=== PATIENT | male | born 1940 | race Caucasian/White ===

== ENCOUNTER 2019-12-05 06:36 | Day surgery (SDC) | payer MEDICARE, BC, SELFPAY ==
[2019-12-04 10:44] VITALS: BMI 19.0
[2019-12-05] MEDS: sodium chloride 0.9% 1,000 ML 30 ML (06:58)
[2019-12-05 07:01] VITALS: BP 173/86; PULSE 76; RESP 18; TEMP 36.6; O2SAT 92
--- NOTE | 2019-12-05 07:04 | ANES.PREANES ---
Pre-Anesthetic Assessment Pre-Anesthetic Assessment: Height/Weight: Height 1.83 m Weight 63.503 kg Temp Pulse Resp BP Pulse Ox 97.9 F 76 18 173/86 92 12/05/19 07:01 12/05/19 07:01 12/05/19 07:01 12/05/19 07:01 12/05/19 07:01 Proposed Procedure: Operation Date: 12/05/19 07:30 Proposed Procedures p EGD(Not Applicable) - Boaz Mixon MD Was Beta Yovanny taken within 24 hours: Yes (labetolol 200mg BID (last taken last night)) Last intake: Intake Last Liquid Date 12/04/19 Last Liquid Time 23:59 Last Solid Date 12/04/19 Last Solid Time 20:00 Social: Social History: Tobacco (quit 35 yrs ago) Exam: Pre-Anes Outpt Exam: alert, oriented x 3, clear to auscultation bilaterally and regular rate & rhythm Airway: Submandibular: WNL Cervical ROM: WNL MP: 2 Dentition: Chipped History/ROS: No significant history except as noted Pulmonary: Pulmonary: COPD and BRANDT (pulmonary nodules excised in early 's ) CV/HEM: CV/HEM: Afib and HTN Comments: severe aortic stenosis (Courtney does an ECHO every 6 months) : : None reported Hepatic: Hepatic: None reported GI: GI: PUD (duodenal ulcer perforation (surgery 2 months ago with Apurva)) Metabolic: Metabolic: Hyperlipidemia Musc/skel: Musc/skel: Weakness (walking assisted by cane) Neuropsych: Neuropsych: Neuropathy (bilateral feet) Anesthetic Plan: ASA status: III Anesthesia: Anesthesia Evaluation and MAC Risk of > 500 ml blood loss (7ml/kg in children): No PFSH Anesthesia PFSH: Social History (Updated 12/04/19 @ 10:50 by Jacqueline Dominique) Smoking and tobacco status: former smoker Alcohol intake: current Alcohol intake frequency: 0-2 Drinks per Day Substance/Drug Use: never Data Anesthesia Cardiac Studies: No Data to Display
--- NOTE | 2019-12-05 07:36 | PM.HPUD ---
H&P update H&P Update: DATE OF SURGERY/PROCEDURE: 12/05/19 DATE H&P PERFORMED: 12/05/19 PLANNED PROCEDURE: Operation Date: 12/05/19 07:30 Proposed Procedures p EGD(Not Applicable) - Boaz Mixon MD Full H&P Perinent History: Social History: Social History Smoking and tobacco status: former smoker Alcohol intake: current Alcohol intake frequency: 0-2 Drinks per Day Substance/Drug Use: never
[2019-12-05 07:51] VITALS: BP 122/72; PULSE 70; RESP 16; TEMP 36.5; O2SAT 92
--- NOTE | 2019-12-05 07:58 | ANE.PACU ---
 Inpatient post-anesthesia follow up: Airway intact: Yes Vital signs: Temperature 97.7 F Pulse Rate [Bilate ral Radial] 70 Respiratory Rate 16 Blood Pressure [Le ft Arm] 122/72 Pulse Oximetry 92 Oxygen Delivery Me thod Room Air Oxygen Flow Rate Fraction of Inspir ed Oxygen Hydration adequate: Yes Nausea and vomiting: No Pain level: Other Pain level: 0/10 Mental status: Baseline
[2019-12-05 08:04] VITALS: BP 134/78; PULSE 69; RESP 18; O2SAT 94
== END 2019-12-05 08:10 | disposition home or self-care (01) ==
PROVIDERS: Family Provider Family Medicine; Visit Provider Surgery
PROC: 0DJ08ZZ Inspection of Upper Intestinal Tract, Via Natural or Artificial Opening Endoscopic (ICD-10-PCS; CPT 43235; principal; 2019-12-05 07:30)
DX: Z87.11 Personal history of peptic ulcer disease (principal); Z87.891 Personal history of nicotine dependence; J44.9 Chronic obstructive pulmonary disease, unspecified; I48.91 Unspecified atrial fibrillation; I10 Essential (primary) hypertension; E78.5 Hyperlipidemia, unspecified; G62.9 Polyneuropathy, unspecified
CPT/HCPCS: 12345; 43235; 96365; J2001; J2704; J7030

== ENCOUNTER 2019-12-12 18:34 | Inpatient (IN) | payer MEDICARE, BC, SELFPAY ==
[2019-12-12] VITALS (13 sets, daily range): BP systolic 123–159; BP diastolic 75–109; PULSE 74–84; RESP 14–24; TEMP 36.4–36.7; O2SAT 70–97; BMI 19.0
--- NOTE | 2019-12-12 18:56 | XR_ITS ---
WS: [id number] CHEST XRAY TECHNIQUE: Portable chest. CLINICAL INFORMATION: cough COMPARISON: May 21, 2018 FINDINGS: Heart: Cardiomegaly. Aortic calcification. Lungs: Pulmonary vascular congestion with interstitial edema. Small bilateral pleural effusions. Biba silar atelectasis. Patchy airspace infiltrate in the left lung base. Bones: Normal visualized bony structures. XR/XR chest 1V portable [id number] IMPRESSION: 1. Cardiomegaly with mild pulmonary vascular congestion and interstitial edema consistent with CHF. Small bilateral pleural effusions. 2. Patchy airspace infiltrate in the left lower lobe consistent with pneumonia .
--- NOTE | 2019-12-12 18:56 | ECG_ITS ---
Measurements Intervals [place] Rate: 75 P: -19 CO: 166 QRS: -40 QRSD: 110 T: 67 QT: 396 QTc: 442 SINUS RHYTHM LEFT VENTRICULAR HYPERTROPHY AND ST-T CHANGE [VOLTAGE CRITERIA PLUS ST/T ABNORMALITY] INFERIOR MYOCARDIAL INFARCTION , OF INDETERMINATE AGE [40+ ms Q WAVE AND/OR ST/T ABNORMALITY IN II/aVF] ANTEROSEPTAL MYOCARDIAL INFARCTION , OF INDETERMINATE AGE [40+ ms Q WAVE IN V1-V4] Compared to ECG 09/21/2019 11:38:52 Left ventricular hypertrophy now present ST (T wave) deviation now present Myocardial infarct finding still present Electronically Signed On 12-13-2019 15:53:50 MUSICAL THERAPIST by Kevin Valdez M.D. [id number]
--- NOTE | 2019-12-12 19:04 | ED_ITS ---
Entered by Saray Garnett, acting as scribe for HPI - SOB/Dyspnea General: Chief Complaint: Shortness of Breath/Dyspnea Stated Complaint: sob Time Seen by Provider: 12/12/19 18:55 Source: patient Mode of arrival: ambulatory Limitations: physical limitation History of Present Illness: HPI Narrative: Mr. Sellers is a 79-year-old male who comes in complaining of shortness of breath. He states for the past 3 weeks he has been getting more short of breath but much worse today. He has had no cough but does have mild orthopnea. He denies any chest pain. He does get severely dyspneic with exertion. He does complain of some heartburn intermittently and increased leg swelling. Otherwise he is aware of anything that makes his symptoms better or worse. The patient does have a history of aortic stenosis and atrial fibrillation. His local doctor is Dr. Dinh and he follows with a advertising clerk out of [place]. MD elicited complaint: shortness of breath Onset (ago): day(s) (today) Context: occurred during exertion Timing: constant and progressively worsening Severity: moderate Exacerbating factors: exertion and deep breaths Relieving factors: nothing Associated symptoms: Reports orthopnea; Deny abdominal pain, chest congestion, chest pain, diaphoresis, dizziness, extre mity pain, fever(s), hemoptysis, nausea, palpitations, polydipsia, syncope or vomiting Treatment prior to arrival: other (seen at PCP clinic sent to ED for shortness of breath.) Review of Systems General: Reports: 10 or more systems reviewed and unremarkable except in HPI and below and other (negative unless marked) Const: Denies: fever, chills, body aches, fatigue, malaise or diaphoresis Eyes: Denies: change in vision or blurry vision ENMT: Denies: throat pain, painful swallowing, hoarseness, ear pain, ear discharge, Change in hearing or nasal discharge Card: Reports: edema, swelling of feet/ankles, shortness of breath on exertion and shortness of breath when lying down; Denies: chest pain, palpitations, irregular heart rhythm, syncope or pre-syncope Resp: Reports: shortness of breath; Denies: productive cough, non-productive cough, wheezing, coughing up blood or chest congestion GI: Denies: abdominal pain, nausea, vomiting, vomiting blood, coffee grounds in vomit, diarrhea, constipation, cramping, blood in stool or black tarry stool : Denies: flank pain, difficulty urinating, painful urination, urinary frequency, urinary urgency, decreased urine ouput, urinary incontinence or blood in urine Musc: Reports: extremity swelling; Denies: neck pain, back pain, extremity pain, joint pain, joint swelling, joint warmth or joint stiffness Skin/Breast: Denies: rash, skin tenderness or yellow skin Neuro: Denies: headache, numbness in extremities, weakness in extremities, changes in sensation, lack of coordination, difficulty walking, dizziness, vertigo or confusion Endo: Denies: excessive thirst, tired all the time, cold intolerance, excessive sweating, flushing or hot flashes Sonido/Lymph: Denies: easy bruising, easy bleeding, petechiae or enlarged lymph nodes All/Imm: Denies: hives, throat swelling, tongue swelling, facial swelling or acute wheezing PFSH ED PFSH: Statuses (acute, chronic, etc) shown below reflect problem list status as previously entered and may not be historically accurate Social History (Updated 12/04/19 @ 10:50 by Jacqueline Dominique) Smoking and tobacco status: former smoker Alcohol intake: current Alcohol intake frequency: 0-2 Drinks per Day Physical Exam Const: COMMON NORMALS: no apparent distress, oriented x3, no limitations, healthy appearing and well nourished EXAM LIMITATIONS: no altered mental status GENERAL APPEARANCE: cooperative, well kempt and well developed ORIENTATION/CONSCIOUSNESS: Yes awake HENMT: COMMON NORMALS: normocephalic, head/scalp atraumatic, hearing grossly normal bilaterally, external ears normal, EAC's normal, external nose normal and moist oral mucous membranes HEAD & SCALP: normal to inspection, normocephalic and atraumatic FACE & SINUS: normal facial exam and face symmetric NOSE: external nose normal and nares normal EXTERNAL EAR: Yes external ears normal EXTERNAL AUDITORY CANAL: EAC's normal MOUTH: oral and palatal mucosa normal and tongue normal Eye: COMMON NORMALS: PERRL, EOMs intact bilaterally, conjunctivae normal and no scleral icterus GENERAL EYE: normal appearance of both eyes and normal light reflex CONJUNCTIVA: Yes conjunctivae normal SCLERA: sclerae normal CORNEA: Yes corneas normal PUPIL: Yes PERRL DIRECT OPHTHALMOSCOPY: Yes normal light reflex Neck/C-Spine: COMMON NORMALS: full ROM, no lymphadenopathy, supple, no meningeal signs and no JVD GENERAL: Yes normal visual inspection and Yes trachea midline CERVICAL SPINE: Yes cervical ROM normal Chest: COMMONS NORMALS: inspection of chest normal and palpation of chest normal Resp: COMMON NORMALS: normal respiratory effort, no retractions and no use of accessory muscles EFFORT & INSPECTION: Yes able to speak in complete sentences AUSCULTATION: rales Cardio: COMMON NORMALS: no JVD, regular rate, regular rhythm, S1 normal heart sound, S2 normal heart sound, no gallops, no clicks, no murmurs and no rub JUGULAR VENOUS DISTENTION: no JVD RATE: regular rate RHYTHM: regular rhythm HEART SOUNDS: S1 normal, S2 normal and murmur systolic Intensity: V/ GI: COMMON NORMALS: soft to palpation, non-tender, no hepatosplenomegaly and no masses INSPECTION: Yes normal to inspection PALPATION: Yes soft and Yes no hepatosplenomegaly : COMMON NORMALS: Yes no CVA tenderness BLADDER/KIDNEY EXAM: Yes no CVA tenderness Back/Pelvis: COMMON NORMALS: no CVA tenderness, thoracic and lumbar spine normal to inspection, no thoracic nor lumbar tenderness and thoraco-lumbar ROM normal Extremity: COMMON NORMALS: normal to inspection, full ROM, normal capillary refill, no joint enlargement, no clubbing, cyanosis or edema and no calf tenderness Neuro: COMMON NORMALS: oriented x3, CN's II-XII intact bilaterally, moves all extremities, no focal motor deficits and no sensory deficits noted MENINGEAL SIGNS: Yes no meningeal signs Psych: COMMON NORMALS: mental status grossly normal, thought process normal, cooperative, affect normal, speech normal and activity/motor behavior normal APPEARANCE: Yes well kempt SPEECH: Yes normal speech THOUGHT PROCESS: normal thought process Skin: COMMON NORMALS: no rashes or lesions noted, skin turgor normal, no jaundice, no petechiae and no mottling GENERAL SKIN EXAM: no rashes or lesions noted and turgor normal Course Vital Signs: Vital signs: Vital Signs Temperature 97.5 F L 12/12/19 18:44 Pulse Rate 82 12/12/19 20:49 Respiratory Rate 16 12/12/19 20:49 Blood Pressure 148/109 12/12/19 20:49 Pulse Oximetry 92 12/12/19 20:49 MDM - SOB/Dyspnea MDM Narrative: Medical decision making narrative: Arrival -Mr. Sellers is a 79-year-old male who arrives with profound hypoxia. His vital signs are stable except for a significant hypoxemia. He denies any chest pain but does complain of dyspnea on exertion. He denies cough or fever. Differential is extensive including congestive heart failure, COPD exacerbation, pneumothorax, shunt, congestive heart failure among many others. We will go ahead and proceed with work-up as giving the patient supplemental oxygen has greatly improved his hypoxemia. Admit -the patient appears as though he has congestive heart failure exacerbated by his valve. He is not in distress but he is extremely hypoxemic. He is tolerating BiPAP well and is diuresing well. I reviewed the case in full with Dr. Pretty who is agreeable to admission. The patient is improving at this time. We will be admitted to the ICU. Lab Data: Labs: Lab Results 12/12/19 12/12/19 12/12/19 Range/Units 19:20 19:20 19:20 WBC 8.0 (4.0-10.0) 10^3/ uL RBC 3.87 L (4.1-5.3) 10^6/u L Hgb 11.6 L (11.7-16.6) g/dL Hct 34.7 L (42.0-52.0) % MCV 89.7 (80-94) fL MCH 30.0 (28.0-34.0) pg MCHC 33.4 (30.0-36.0) g/dL RDW 12.8 (12.1-15.1) % Plt Count 166 (130-400) 10^3/c mm MPV 9.1 (7.4-10.4) fL Neut % (Auto) 76.8 % Lymph % (Auto) 9.1 % Howard % (Auto) 12.2 % Eos % (Auto) 1.2 % Baso % (Auto) 0.5 % Neut # (Auto) 6.2 (1.8-7.7) 10^3/u L Lymph # (Auto) 0.7 L (0.8-4.8) 10^3/u L Howard # (Auto) 1.0 H (0.2-0.9) 10^3/u L Eos # (Auto) 0.1 (0.0-0.8) 10^3/u L Baso # (Auto) 0.0 (0.0-0.1) 10^3/u L Nucleated RBC % (a uto) 0 % Nucleated RBCs # 0.0 /100WBC Specimen Type Sample Site ABG pH (7.35-7.45) ABG pCO2 (35-45) mmHg ABG pO2 (80.0-100.0) mmH g ABG HCO3 (22-26) mmol/L ABG Base Excess (-2.0-2.0) mmol/ L Perico Test Hematocrit (42-52) % O2 Delivery Device O2 Liters/Min % Pipe Turner ID Sodium 135 L (136-145) mmol/L Potassium 4.6 (3.5-5.1) mmol/L Chloride 95 L (98-107) mmol/L Carbon Dioxide 24 (22-29) mmol/L Anion Gap 20.6 H (5-19) BUN 28 H (8-23) mg/dL Creatinine 1.2 (0.7-1.2) mg/dL Glucose 114 H (74-106) mg/dL Lactic Acid 0.8 (0.5-2.2) mmol/L Calcium 9.5 (8.5-10.5) mg/dL Total Bilirubin 0.6 (0.15-1.2) mg/dL AST 29 (0-40) U/L ALT 23 (0-41) U/L Alkaline Phosphata se 63 (40-130) IU/L Troponin T Baselin e (0-15) ng/mL NT-Pro-B Natriuret Pep 1155 H (0-450) pg/mL Total Protein 7.3 (6.6-8.7) g/dL Albumin 4.0 (3.5-5.2) g/dL Globulin 3.3 (1.3-4.6) g/dL 12/12/19 12/12/19 Range/Units 19:20 20:40 WBC (4.0-10.0) 10^3/ uL RBC (4.1-5.3) 10^6/u L Hgb (11.7-16.6) g/dL Hct (42.0-52.0) % MCV (80-94) fL MCH (28.0-34.0) pg MCHC (30.0-36.0) g/dL RDW (12.1-15.1) % Plt Count (130-400) 10^3/c mm MPV (7.4-10.4) fL Neut % (Auto) % Lymph % (Auto) % Howard % (Auto) % Eos % (Auto) % Baso % (Auto) % Neut # (Auto) (1.8-7.7) 10^3/u L Lymph # (Auto) (0.8-4.8) 10^3/u L Howard # (Auto) (0.2-0.9) 10^3/u L Eos # (Auto) (0.0-0.8) 10^3/u L Baso # (Auto) (0.0-0.1) 10^3/u L Nucleated RBC % (a uto) % Nucleated RBCs # /100WBC Specimen Type Arterial Sample Site Radial, left ABG pH 7.42 (7.35-7.45) ABG pCO2 40.0 (35-45) mmHg ABG pO2 55.8 L (80.0-100.0) mmH g ABG HCO3 26.0 (22-26) mmol/L ABG Base Excess 1.5 (-2.0-2.0) mmol/ L Perico Test Pos Hematocrit 36.9 L (42-52) % O2 Delivery Device Nrb O2 Liters/Min 11.0 % Pipe Turner ID ellpe Sodium (136-145) mmol/L Potassium (3.5-5.1) mmol/L Chloride (98-107) mmol/L Carbon Dioxide (22-29) mmol/L Anion Gap (5-19) BUN (8-23) mg/dL Creatinine (0.7-1.2) mg/dL Glucose (74-106) mg/dL Lactic Acid (0.5-2.2) mmol/L Calcium (8.5-10.5) mg/dL Total Bilirubin (0.15-1.2) mg/dL AST (0-40) U/L ALT (0-41) U/L Alkaline Phosphata se (40-130) IU/L Troponin T Baselin e 54 H (0-15) ng/mL NT-Pro-B Natriuret Pep (0-450) pg/mL Total Protein (6.6-8.7) g/dL Albumin (3.5-5.2) g/dL Globulin (1.3-4.6) g/dL Discharge Plan Discharge Patient Disposition: Admitted As Inpatient Clinical Impression: Congestive heart failure Condition: Stable Prescriptions: No Action labetalol 200 mg tablet 100 mg PO BID RF: 0 amlodipine 2.5 mg tablet 2.5 mg PO BID RF: 0 propafenone 225 mg tablet 225 mg PO BID RF: 0 pantoprazole 40 mg tablet,delayed release (DR/EC) 40 mg PO DAILY RF: 0 folic acid 1 mg tablet 1 mg PO DAILY RF: 0 rosuvastatin 20 mg tablet 20 mg PO BEDTIME RF: 0 hydrochlorothiazide 25 mg tablet 25 mg PO DAILY RF: 0 Referrals: Nba Dinh MD [Family Provider] - Coding Level of Care Code ED Scrap Wheeler for Chg Fwd Exam Problem Focused The documentation recorded by the Tamir rosario Bridget Annette, accurately reflects the service I personally performed and the decisions made by Raphael anne Eli N Dec 12, 2019 18:34
[2019-12-12 19:35] LABS: Basophils % 0.5 %; Eosinophils # 0.1 10^3/uL (0.0-0.8); Eosinophils % 1.2 %; Hematocrit 34.7 % (42.0-52.0); Hemoglobin 11.6 g/dL (11.7-16.6); Lymphocytes # 0.7 10^3/uL (0.8-4.8); Lymphocytes % 9.1 %; Mean Corpuscular HGB Conc 33.4 g/dL (30.0-36.0); Mean Corpuscular Volume 89.7 fL (80-94); Mean Platelet Volume 9.1 fL (7.4-10.4); Monocytes % 12.2 %; Neutrophils # 6.2 10^3/uL (1.8-7.7); Neutrophils % 76.8 %; Nucleated Red Blood Cells % 0 %; Platelet Count 166 10^3/cmm (130-400); Red Blood Count 3.87 10^6/uL (4.1-5.3); Red Cell Distribution Width 12.8 % (12.1-15.1)
[2019-12-12 20:04] LABS: Lactic Sepsis W/Reflex 0.8 mmol/L (0.5-2.2)
[2019-12-12 20:07] LABS: Troponin(5th) Baseline 54 ng/mL (0-15)
[2019-12-12 20:12] LABS: Alanine Aminotransferase 23 U/L (0-41); Alkaline Phosphatase 63 IU/L (40-130); Anion Gap 20.6 (5-19); Aspartate Amino Transferase 29 U/L (0-40); Blood Urea Nitrogen 28 mg/dL (8-23); Calcium 9.5 mg/dL (8.5-10.5); Carbon Dioxide 24 mmol/L (22-29); Chloride 95 mmol/L (98-107); Globulin 3.3 g/dL (1.3-4.6); Glucose 114 mg/dL (74-106); NT Pro B Type Natriuretic Pept 1155 pg/mL (0-450); Potassium 4.6 mmol/L (3.5-5.1); Sodium 135 mmol/L (136-145); Total Bilirubin 0.6 mg/dL (0.15-1.2); Total Protein 7.3 g/dL (6.6-8.7)
[2019-12-12] MEDS: FUROsemide 10 mg/mL SDV 4mL 40 MG IVP (20:32)
[2019-12-12] MEDS: levofloxacin-dextrose 5 % 750 MG/150 ML PREMIX 150 MG IV (20:33)
[2019-12-12] MEDS: ipratropium-albuterol 3 mL Neb 9 ML INHALATION (20:45)
[2019-12-12 20:51] LABS: ABG PH Result 7.42 (7.35-7.45); Arterial Blood Gas Hematocrit 36.9 % (42-52); Base Excess ABG 1.5 mmol/L (-2.0-2.0); Blood Gas Allen Test Pos; Blood Gas Sample Site Radial, left; Blood Gas Sample Type Arterial; Oxygen Device NRB; PO2 ABG 55.8 mmHg (80.0-100.0)
--- NOTE | 2019-12-12 20:56 | ECG_ITS ---
Measurements Intervals [place] Rate: 81 P: 53 [place]: 230 QRS: -35 QRSD: 112 T: 77 QT: 382 QTc: 445 SINUS RHYTHM WITH FIRST DEGREE AV BLOCK MARKED LEFT AXIS DEVIATION [QRS AXIS < -30] LEFT VENTRICULAR HYPERTROPHY AND ST-T CHANGE [VOLTAGE CRITERIA PLUS ST/T ABNORMALITY] Possible ANTEROSEPTAL MYOCARDIAL INFARCTION [40+ ms Q WAVE IN V1-V4] Compared to ECG 09/21/2019 11:38:52 First degree AV block now present Left-axis deviation now present Left ventricular hypertrophy now present ST (T wave) deviation now present Myocardial infarct finding still present Electronically Signed On 12-13-2019 15:57:04 RN REHABILITATION by Kevin Valdez M.D. [id number]
[2019-12-12 21:27] LABS: Troponin 5 2HR 53.77 ng/mL (0-15)
[2019-12-12 21:31] LABS: Troponin 5 2HR Delta -0.23 ABS# (0-10)
--- NOTE | 2019-12-12 21:42 | PM.HP ---
Providers/Chief Complaint Chief Complaint: ACUTE CHF EXACERBATION History of Present Illness Elio Sellers is a 79 year old male who carries diagnosis of preserved ejection fraction heart failure, diastolic dysfunction, severe aortic stenosis, aortic regurgitation mild, chronic A. fib on propafenone not a candidate of anticoagulation because of fall and intracranial bleed came in with chief complaint of shortness of breath. Patient is stating that his symptoms started about 2 to 3 weeks ago with shortness of breath on exertion, at baseline he mostly takes care of his daily activities without much assistance, he does not smoke, does not drink alcohol, he is compliant with his medications, he has been experiencing orthopnea and PND and now his shortness of breath is getting worse to the point that he cannot participate in physical therapy sessions. He thinks physical therapy sessions are making him more symptomatic. He has not experienced any chest pain, nausea, vomiting, dysuria, abdominal pain. He watches his diet, tries to eat low-sodium, he started noticing his legs are getting swollen, he is not on any diuretics, after previous abdominal surgery he was taken off Lasix. His consulting technical director is in [place] name is Dr. Alexx Rodriguez. Diagnostics in ER showed preserved ejection fraction heart failure, EKG shows incomplete left bundle branch block with left axis deviation, sinus rhythm heart rate 70, blood pressure 157/80 Saturating well on BiPAP 40% He was given IV Lasix in ER 40 mg and was put on BiPAP. On arrival he was hypoxic in low 70s on room air Patient was able to give me all the details while being on BiPAP Review of Systems Const: Denies: fever, chills or body aches Eyes: Denies: change in vision ENMT: Denies: throat pain Card: Reports: edema, swelling of feet/ankles, shortness of breath on exertion and shortness of breath when lying down; Denies: chest pain or palpitations Resp: Reports: shortness of breath and non-productive cough; Denies: productive cough GI: Denies: abdominal pain, nausea or vomiting : Denies: flank pain, difficulty urinating or urinary frequency Musc: Denies: neck pain or back pain Skin/Breast: Denies: rash Neuro: Denies: headache Psych: Denies: anxiety Endo: Denies: excessive urination Sonido/Lymph: Denies: easy bruising All/Imm: Denies: hives Medications/Allergies Allergies Allergy/AdvReac Type Severity Reaction Status Date / Time ramipril Allergy MASHAY-Swell Verified 12/04/19 10:32 Lip/Tongue/Throat PFSH Acute PFSH: Statuses (acute, chronic, etc) shown below reflect problem list status as previously entered and may not be historically accurate Medical History (Updated 12/12/19 @ 22:48 by Wiley Morelos MD) Atrial fibrillation (Acute) COPD (chronic obstructive pulmonary disease) (Acute) Diastolic dysfunction (Acute) Heart failure with preserved ejection fraction (Acute) HTN (hypertension) (Acute) Hx of subarachnoid hemorrhage (Acute) Hyperlipidemia (Acute) Mild aortic regurgitation (Acute) Mild pulmonary hypertension (Acute) Perforated duodenal ulcer (Acute) Peripheral neuropathy (Acute) Prostate cancer (Acute) PUD (peptic ulcer disease) (Acute) Severe aortic stenosis (Acute) Skin cancer (Acute) Spontaneous pneumothorax (Acute) Surgical History (Updated 12/12/19 @ 21:45 by Wiley Morelos MD) H/O exploratory laparotomy (Acute) History of colon surgery (Acute) History of lung surgery (Acute) Hx of prostatectomy (Acute) Hx of tonsillectomy (Acute) Family History (Updated 12/12/19 @ 21:56 by Wiley Morelos MD) Other Diabetes Hypertension Denies family history of CAD (coronary artery disease) Cancer Social History (Updated 12/12/19 @ 21:56 by Wiley Morelos MD) Smoking and tobacco status: former smoker Alcohol intake: current Alcohol intake frequency: 0-2 Drinks per Day Substance/Drug Use: never Vitals/I&O/Wt Last Vital Signs Temp 97.5 F L 12/12/19 18:44 Pulse 82 12/12/19 20:49 Resp 16 12/12/19 20:49 BP 148/109 12/12/19 20:49 Pulse Ox 92 12/12/19 20:49 Weight last 48 hrs Weight 63.503 kg Physical Exam Narrative: EXAM NARRATIVE: Elderly male currently on BiPAP without any active respiratory distress, able to give me all the details about his symptoms and history Very pleasant No active respiratory distress, he has bilateral assisted breath sounds without adventitious sounds Abdomen soft nontender nondistended bowel sounds present S1, S2, positive JVD with bilateral lower extremity edema Lower extremity bilateral edema 1+ with dorsalis pedis pulses 2+ Patient has a Kramer catheter draining clear yellow urine Appropriate mood and affect EOMI, PERRLA Skin does not show any sign of ischemia getting ulcer Urinary Catheter Management^: Kramer: Cath Placed During This Visit: no Data : 12/12/19 19:20 12/12/19 19:20 Micro: Microbiology 12/12/19 19:28 Blood Culture - Preliminary Blood SPECIMEN COLLECTED 12/12/19 19:20 Blood Culture - Preliminary Blood SPECIMEN COLLECTED A&P Assessment and plan (1) Congestive heart failure: Status: Acute Qualifiers: Heart failure chronicity: acute Heart failure type: unspecified Qualified Code(s): I50.9 - Heart failure, unspecified Code(s): I50.9 - Heart failure, unspecified (2) Hypoxia: Status: Acute Code(s): R09.02 - Hypoxemia (3) Severe aortic stenosis: Status: Acute Code(s): I35.0 - Nonrheumatic aortic (valve) stenosis Additional A&P Information Preserved ejection fraction heart failure exacerbation likely due to valvular abnormality Patient is not on Lasix at home He has severe aortic stenosis, because of increased physical work due to physical therapy sessions I believe his workload has been increased with increased oxygen demand especially with underlying history of A. fib contributing to decompensated heart failure Considering severe aortic stenosis history I would use moderate dose of Lasix 40 mg p.o. daily Monitor I's/O Cardiac diet His echo was done last year 10/23/2019, I would not repeat echo at this point Stop amlodipine Severe aortic stenosis Option of valve replacement was discussed about 3 years ago, his consulting technical director is in [place] Dr. Alexx Todd He is being managed medically Because of worsening of his symptoms and decompensated heart failure asked him to see his consulting technical director as soon as possible after this hospitalization We will request records from [facility] Paroxysmal A. fib without RVR I would continue propafenone and labetalol for now No tachyarrhythmia Not a candidate to be on anticoagulation because of previous fall and history of intracranial bleed After his abdominal surgery he was taken off aspirin as well, please reconsider high-dose aspirin for discharge Full code DVT prophylaxis: Lovenox Attestations Medical Necessity Statement*: Anticipating stay in the hospital to cross more than 2 midnights because of severe aortic stenosis, heart failure decompensation and hypoxic respiratory failure Time Spent in Patient Care: 60 Coding Level of Care Code Acute Sled Maker for g Fwd Diagnoses Congestive heart failure I50.9 Heart failure chronicity: acute Heart failure type: unspecified Hypoxia R09.02 Severe aortic stenosis I35.0
[2019-12-12] MEDS: enoxaparin 40 mg/0.4 mL Syringe SUBCUT (23:21)
[2019-12-12] MEDS: atorvastatin 40 mg Tablet 80 MG PO (23:21)
[2019-12-13] VITALS (53 sets, daily range): BP systolic 86–157; BP diastolic 47–115; PULSE 62–93; RESP 14–22; TEMP 37–37.1; O2SAT 94–99
[2019-12-13 01:16] LABS: Troponin 5 6HR 57.72 ng/L (0-15); Troponin 5 6HR Delta 3.72 ng/L (0-12)
--- NOTE | 2019-12-13 03:24 | PC.NURSE ---
PT CAME TO ICU 4 FROM THE ED VIA BED. PT C/O SOB, BUT DENIES CHEST PAIN. PT IS ALERT AND ORIENTATED X4. PT WAS ON 15L O2 BEFORE BEING PUT ON THE BIPAP. VS BP 157/78, HR 77, SPO2 96, RR 24. WILL CONTINUE TO MONITOR.
[2019-12-13 04:21] LABS: Basophils % 0.4 %; Eosinophils # 0.1 10^3/uL (0.0-0.8); Eosinophils % 0.9 %; Hematocrit 33.1 % (42.0-52.0); Hemoglobin 11.5 g/dL (11.7-16.6); Lymphocytes # 0.6 10^3/uL (0.8-4.8); Lymphocytes % 8.5 %; Mean Corpuscular HGB Conc 34.7 g/dL (30.0-36.0); Mean Corpuscular Hemoglobin 31.1 pg (28.0-34.0); Mean Corpuscular Volume 89.5 fL (80-94); Monocytes % 15.1 %; Neutrophils # 5.1 10^3/uL (1.8-7.7); Neutrophils % 74.8 %; Nucleated Red Blood Cells % 0 %; Platelet Count 169 10^3/cmm (130-400); Red Cell Distribution Width 12.3 % (12.1-15.1); White Blood Count 6.8 10^3/uL (4.0-10.0)
[2019-12-13 04:45] LABS: Anion Gap 17.9 (5-19); Blood Urea Nitrogen 27 mg/dL (8-23); Calcium 9.3 mg/dL (8.5-10.5); Carbon Dioxide 27 mmol/L (22-29); Chloride 98 mmol/L (98-107); Glucose 118 mg/dL (74-106); Osmolality Calculated 286 mOsm/kg (285-295); Potassium 3.9 mmol/L (3.5-5.1); Sodium 139 mmol/L (136-145)
[2019-12-13] MEDS: FUROsemide 40 mg Tablet PO (09:11)
[2019-12-13] MEDS: labetalol 200 mg Tablet 100 MG PO ×2 (09:11→17:45)
[2019-12-13] MEDS: propafenone 150 mg Tablet 225 MG PO ×2 (09:15→17:46)
--- NOTE | 2019-12-13 14:33 | PM.PN ---
Subjective Subjective: Interval history: Patient reports feeling much better today. She he has been off BiPAP since echocardiogram today currently saturating well on nasal cannula. States he feels much improved. No current complaints of chest pain or dyspnea. Medications: Reviewed: Yes Vitals/I&O/Wt Last Vital Signs Temp 98.7 F 12/13/19 04:00 Pulse 72 12/13/19 13:00 Resp 19 H 12/13/19 11:30 BP 129/65 12/13/19 12:30 Pulse Ox 95 12/13/19 13:00 12/12/19 12/13/19 12/13/19 22:59 06:59 14:59 Intake Total 300 / 300 Output Total 3300 / 3300 Balance -3300 / -3300 300 / 300 Weight last 48 hrs Weight 63.503 kg Physical Exam Narrative: EXAM NARRATIVE: GEN: Awake, alert and oriented, no acute distress CVS: S1S2 N, loud systolic murmur + RS: CTA B/L Abd: Soft, nt/nd , bs+ TRANSITION SPECIALIST: no focal neuro deficits Urinary Catheter Management^: Kramer: Cath Placed During This Visit: no Data : 12/13/19 03:35 12/13/19 03:35 Micro: Microbiology 12/12/19 19:28 Blood Culture - Preliminary Blood SPECIMEN COLLECTED 12/12/19 19:20 Blood Culture - Preliminary Blood SPECIMEN COLLECTED A&P Assessment and plan (1) Congestive heart failure: Status: Acute Qualifiers: Heart failure chronicity: acute Heart failure type: unspecified Qualified Code(s): I50.9 - Heart failure, unspecified Code(s): I50.9 - Heart failure, unspecified (2) Hypoxia: Status: Acute Code(s): R09.02 - Hypoxemia (3) Severe aortic stenosis: Status: Acute Code(s): I35.0 - Nonrheumatic aortic (valve) stenosis Additional A&P Information Preserved ejection fraction heart failure exacerbation likely due to valvular abnormality Patient reports being on diuretics up until last week. On His last discharge approximately 2 months ago diuretics were held due to dehydration and hypotension after surgery during hospital course, however patient was unaware that these have been stopped and continued to take diuretics after discharge up until last week. When the prescription came up for refill about 1 week ago, he was called by a nurse from his PCPs office and was told that he is supposed to be off diuretics as of the last discharge. However he has not been taking these since about 1 week. Currently patient's breathing is improved after using BiPAP overnight. He has received 40 mg of p.o. Lasix. Chest is currently clear to auscultation. Monitor I's/O Cardiac diet His echo was done last year 10/23/2019 Stop amlodipine Severe aortic stenosis Option of valve replacement was discussed about 3 years ago, his product support technician is in [place] Dr. Alexx Todd He is being managed medically Because of worsening of his symptoms and decompensated heart failure he requests evaluation by cardiology as an inpatient. Consult requested and placed with Dr. Navas. Paroxysmal A. fib without RVR continue propafenone and labetalol for now No tachyarrhythmia Not a candidate to be on anticoagulation because of previous fall and history of intracranial bleed After his abdominal surgery he was taken off aspirin as well, will discuss with cardiology regarding resuming the same at this point. Full code DVT prophylaxis: Lovenox Attestations Medical Necessity Statement*: Currently admitted for acute on chronic CHF exacerbation. Awaiting optimization of respiratory status. 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
--- NOTE | 2019-12-13 15:44 | PM.CONSULT ---
Providers/Reason For Consult Consulting Physican/Specialty*: Yojana Navas MD/cardiology Reason for Consult*: Patient with aortic valve stenosis and heart failure Attending Physician: Elisabeth Allred MD History of Present Illness History of Present Illness Elio Sellers is a 79 year old male is admitted to hospital with complaints of progressive shortness of breath and leg swelling. Mr. Sellers is known to have atrial fibrillation, high blood pressure, dyslipidemia and aortic valve stenosis. Recently had echocardiogram which revealed severe aortic valve stenosis with a valve area of 0.75 cm? and a mean gradient of 42 mmHg. Patient is being followed by a outreach nurse in [facility]. According to the patient, for the last 3 weeks or so, he has been experiencing shortness of breath which has been progressively getting worse. He did not have any fever chills or cough. No chest pain. He also has been noticing some swelling of the lower extremities which also has been getting worse. He might have had some orthopnea as well. No palpitation, dizziness or syncopal episode. No other associated symptoms. Approximately 3 years ago, patient had some work of to evaluate for a possible aortic valve surgery. This included a cardiac catheterization. According to the patient he did not have any significant coronary artery disease at that time. Details of this is not available at this time. He has a history of atrial fibrillation and was on Xarelto for a while. In 2017, he came with fall and altered mental status. He had a intracranial bleed . For that reason, he was taken off the Xarelto. He has been taking the aspirin since then. Recently he had a colonoscopy to evaluate for? GI bleed. Following this, he was taken off the aspirin. He also was advised to take stop taking the HCTZ. At the time of examination, patient is feeling much better. He has been diuresing well. He denies any specific complaints at this time. Review of Systems Narrative: CONSTITUTIONAL: No fever or chills. EYES: No blurring of vision or other visual disturbances lately. ENT: No hoarseness of voice, auditory disturbances or sore throat. CARDIOVASCULAR: As mentioned above. RESPIRATORY: No significant cough. Has a history of emphysema and spontaneous pneumothorax. GASTROINTESTINAL: No hematemesis or melena. Questionable history of GI bleed GENITOURINARY: No dysuria or hematuria. History of prostate cancer and had surgical intervention INTEGUMENTARY: No skin rashes or history of skin cancer. NEURO: No transient ischemic attacks or amaurosis. History of intracranial and subdural hemorrhage from the fall, while being on Xarelto PSYCHIATRIC: No history of psychosis or major depression. HEMATOLOGIC: No bleeding disorders or significant anemia. ENDOCRINE: No history of polyuria or polydipsia. MUSCULOSKELETAL: No recent joint pain or swelling. ALLERGY/IMMUNOLOGY: As mentioned above. Meds/Allergies Home Medications and Allergies Home Medications Medication Instructions Recorded Confirmed Type amlodipine 2.5 mg PO BID 12/04/19 12/12/19 History folic acid 1 mg PO DAILY 12/04/19 12/12/19 History labetalol 100 mg PO BID 12/04/19 12/12/19 History pantoprazole 40 mg PO DAILY 12/04/19 12/12/19 History propafenone 225 mg PO BID 12/04/19 12/12/19 History rosuvastatin 20 mg PO BEDTIME 12/04/19 12/12/19 History hydrochlorothiazide 6.25 mg PO DAILY 12/05/19 12/12/19 History Allergies Allergy/AdvReac Type Severity Reaction Status Date / Time ramipril Allergy ALGY-Swell Verified 12/04/19 10:32 Lip/Tongue/Throat Current Medications Current Medications Generic Name Dose Route Start Last Admin Trade Name Freq PRN Reason Stop Dose Admin Atorvastatin Calcium 80 mg 12/12/19 23:15 12/12/19 23:21 Lipitor PO 80 mg BEDTIME NOLAN Administration Enoxaparin Sodium 40 mg 12/12/19 22:58 12/12/19 23:21 Lovenox SUBCUT 40 mg Q24H NOLAN Administration Furosemide 40 mg 12/13/19 08:00 12/13/19 09:11 Lasix PO 40 mg DAILY@0800 NOLAN Administration Labetalol HCl 100 mg 12/13/19 09:00 12/13/19 09:11 Trandate PO 100 mg BID NOLAN Administration Propafenone HCl 225 mg 12/13/19 09:00 12/13/19 09:15 Rythmol PO 225 mg BID NOLAN Administration PFSH Acute PFSH: Statuses (acute, chronic, etc) shown below reflect problem list status as previously entered and may not be historically accurate Medical History Atrial fibrillation (Acute) COPD (chronic obstructive pulmonary disease) (Acute) Diastolic dysfunction (Acute) Heart failure with preserved ejection fraction (Acute) HTN (hypertension) (Acute) Hx of subarachnoid hemorrhage (Acute) Hyperlipidemia (Acute) Mild aortic regurgitation (Acute) Mild pulmonary hypertension (Acute) Perforated duodenal ulcer (Acute) Peripheral neuropathy (Acute) Prostate cancer (Acute) PUD (peptic ulcer disease) (Acute) Severe aortic stenosis (Acute) Skin cancer (Acute) Spontaneous pneumothorax (Acute) Surgical History H/O exploratory laparotomy (Acute) History of colon surgery (Acute) History of lung surgery (Acute) Hx of prostatectomy (Acute) Hx of tonsillectomy (Acute) Family History Other Diabetes Hypertension Denies family history of CAD (coronary artery disease) Cancer Social History Smoking and tobacco status: former smoker Alcohol intake: current Alcohol intake frequency: 0-2 Drinks per Day Substance/Drug Use: never Vitals/I&O/Wt Last Vital Signs Temp 98.7 F 12/13/19 04:00 Pulse 73 12/13/19 14:30 Resp 19 H 12/13/19 11:30 BP 120/72 12/13/19 15:00 Pulse Ox 97 12/13/19 15:00 12/13/19 12/13/19 12/13/19 06:59 14:59 22:59 Intake Total 300 / 300 Output Total 3300 / 3300 Balance -3300 / -3300 300 / 300 Weight last 48 hrs Weight 140 lb Physical Exam Narrative: EXAM NARRATIVE: GENERAL: The patient is alert and oriented times three. Not in any acute distress. Lean HEENT: No significant pallor, icterus or lymphadenopathy. The pupils are reactant to light. Oral cavity: There are no mucous membrane lesions. Funduscopic examination: The fundus is not visualized NECK: Trachea appears to be central. No masses noted. No JVD or thyromegaly appreciated. No carotid bruit. RESPIRATORY: Chest is symmetrical. No intercostals muscle retraction or any accessory muscle activation. There is no chest wall tenderness. Breath sounds are heard bilaterally. No rales or rhonchi heard. No evidence of any consolidation. The intensity of the breath sounds are diminished in the bases BREASTS: Deferred. HEART: The PMI is in the 5th left intercostals space just inside the midclavicular line. No palpable precordial events. S1 is soft. S2 is normal. Ejection systolic murmur grade 4/6 in these aortic area with transmission to the carotids. ABDOMEN: No vessel pulsations or distention. No tenderness. No organomegaly appreciated. No abdominal bruit. Bowel sounds are normally heard. : Deferred. RECTAL: Deferred. LYMPHATIC: No lymphadenopathy noted in the neck or groin. EXTREMITIES: No edema or cyanosis. No clubbing. The pulses are symmetrical bilaterally. The radial, femoral, dorsalis pedis and the posterior tibial pulses are palpated and found to be of low volume and amplitude MUSCULOSKELETAL: No acute joint deformities or swelling SKIN: There are no significant scars or skin rash noted. NEUROPSYCHIATRIC: The patient is alert and oriented x3. Appears to be in a good mood. The higher functions are grossly within normal limits. No tremors or rigidity noted. Urinary Catheter Management^: Kramer: Cath Placed During This Visit: no Data Micro: Micro: Microbiology 12/12/19 19:28 Blood Culture - Pr eliminary Blood SPECIMEN [facility] 12/12/19 19:20 Blood Culture - Pr eliminary Blood SPECIMEN [facility] Abnormal lab results 12/12/19 12/12/19 12/12/19 Range/Units 19:20 19:20 19:20 RBC 3.87 L (4.1-5.3) 10^6/u L Hgb 11.6 L (11.7-16.6) g/dL Hct 34.7 L (42.0-52.0) % Lymph # (Auto) 0.7 L (0.8-4.8) 10^3/u L [place] # (Auto) 1.0 H (0.2-0.9) 10^3/u L ABG pO2 (80.0-100.0) mmH g Hematocrit (42-52) % Sodium 135 L (136-145) mmol/L Chloride 95 L (98-107) mmol/L Anion Gap 20.6 H (5-19) BUN 28 H (8-23) mg/dL Glucose 114 H (74-106) mg/dL Troponin I 6 Hour (0-15) ng/L Troponin T Baselin e 54 H (0-15) ng/mL Troponin T 120 Min saw (0-15) ng/mL Delta Troponin T (0-10) ABS# NT-Pro-B Natriuret Pep 1155 H (0-450) pg/mL 12/12/19 12/12/19 12/13/19 Range/Units 20:40 21:02 00:47 RBC (4.1-5.3) 10^6/u L Hgb (11.7-16.6) g/dL Hct (42.0-52.0) % Lymph # (Auto) (0.8-4.8) 10^3/u L [place] # (Auto) (0.2-0.9) 10^3/u L ABG pO2 55.8 L (80.0-100.0) mmH g Hematocrit 36.9 L (42-52) % Sodium (136-145) mmol/L Chloride (98-107) mmol/L Anion Gap (5-19) BUN (8-23) mg/dL Glucose (74-106) mg/dL Troponin I 6 Hour 57.72 H (0-15) ng/L Troponin T Baselin e (0-15) ng/mL Troponin T 120 Min saw 53.77 H (0-15) ng/mL Delta Troponin T -0.23 L (0-10) ABS# NT-Pro-B Natriuret Pep (0-450) pg/mL 12/13/19 12/13/19 Range/Units 03:35 03:35 RBC 3.70 L (4.1-5.3) 10^6/u L Hgb 11.5 L (11.7-16.6) g/dL Hct 33.1 L (42.0-52.0) % Lymph # (Auto) 0.6 L (0.8-4.8) 10^3/u L [place] # (Auto) 1.0 H (0.2-0.9) 10^3/u L ABG pO2 (80.0-100.0) mmH g Hematocrit (42-52) % Sodium (136-145) mmol/L Chloride (98-107) mmol/L Anion Gap (5-19) BUN 27 H (8-23) mg/dL Glucose 118 H (74-106) mg/dL Troponin I 6 Hour (0-15) ng/L Troponin T Baselin e (0-15) ng/mL Troponin T 120 Min saw (0-15) ng/mL Delta Troponin T (0-10) ABS# NT-Pro-B Natriuret Pep (0-450) pg/mL Imaging^: CXR: My impression: Mild cardiomegaly. Bilateral interstitial edema. Prominent pulmonary vascular markings. No significant pleural effusion. Echo: My impression: Normal LV size ejection fraction of 65%. Moderate concentric left ankle hypertrophy. No gross wall motion abnormalities. Features of grade 1 left ventricular diastolic dysfunction. Estimated right ventricular peak systolic pressure 36 mmHg. Peak aortic valve velocity of 4.1 m/s with a mean gradient of 43 mmHg. Aortic valve area was calculated to be 0.75 cm?. EKG^: EKG 1: My Interpretation: Normal sinus rhythm with a first-degree AV block. Left axis deviation. Poor R wave progression. Possible old anteroseptal NH. Features of LVH. Some nonspecific ST-T changes. A&P Assessment and plan (1) Severe aortic stenosis: Since aortic valve stenosis complicated with heart failure, he may benefit from aortic valve intervention. I discussed the patient about further management options. He might be a candidate for percutaneous intervention. Patient is willing to consider this. Since he has a outreach nurse at [facility] he may like to go back there for further evaluation management. Status: Acute Code(s): I35.0 - Nonrheumatic aortic (valve) stenosis (2) Heart failure with preserved ejection fraction: Patient has clinical features of acute diastolic heart failure. We will try to optimize his medical treatment. He may be carefully treated with IV diuretics. He may be switched to p.o. Lasix tomorrow. BMP in the morning Status: Acute Qualifiers: Heart failure chronicity: acute on chronic Qualified Code(s): I50.33 - Acute on chronic diastolic (congestive) heart failure Code(s): I50.30 - Unspecified diastolic (congestive) heart failure (3) Atrial fibrillation: Patient currently appears to be in sinus rhythm. He is on propafenone and labetalol. These medications may be continued. Status: Acute Qualifiers: Atrial fibrillation type: longstanding persistent Qualified Code(s): I48.11 - Longstanding persistent atrial fibrillation Code(s): I48.91 - Unspecified atrial fibrillation Additional A&P Information She has a history of hypertension, currently normotensive. May continue on the current medications for the time being. History of dyslipidemia, on atorvastatin. This might be continued. Emphysema/COPD, clinically seems to be stable. Based on the clinical progress, further recommendations will be made. 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
[2019-12-13] MEDS: atorvastatin 40 mg Tablet 80 MG PO (20:43)
[2019-12-13] MEDS: enoxaparin 40 mg/0.4 mL Syringe SUBCUT (22:57)
[2019-12-14] VITALS (39 sets, daily range): BP systolic 95–150; BP diastolic 54–79; PULSE 65–108; RESP 4–27; TEMP 36.6–36.9; O2SAT 91–99
[2019-12-14] MEDS: propafenone 150 mg Tablet 225 MG PO ×2 (08:32→18:40)
[2019-12-14] MEDS: FUROsemide 40 mg Tablet PO (08:32)
[2019-12-14] MEDS: labetalol 200 mg Tablet 100 MG PO ×2 (08:32→18:45)
--- NOTE | 2019-12-14 12:03 | PM.PN ---
Subjective Subjective: Interval history: Patient subjectively improving. Denies any complaints of chest pain or dyspnea at this time. Clinically looks euvolemic. Urine output is 2 L over the last 24 hours. Creatinine at 1.2, which is stable. Up from a baseline of 0.9 when last checked. Participated in PT this morning. Currently saturating 97% on 3 L/min nasal cannula. 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: no focal neuro deficits Urinary Catheter Management^: Kramer: Cath Placed During This Visit: no Data : 12/13/19 03:35 12/13/19 03:35 Micro: Microbiology 12/12/19 19:28 Blood Culture - Preliminary Blood NEGATIVE TO DATE 12/12/19 19:20 Blood Culture - Preliminary Blood NEGATIVE TO DATE A&P Assessment and plan (1) Atrial fibrillation: Status: Acute Qualifiers: Atrial fibrillation type: longstanding persistent Qualified Code(s): I48.11 - Longstanding persistent atrial fibrillation Code(s): I48.91 - Unspecified atrial fibrillation (2) Heart failure with preserved ejection fraction: Status: Acute Qualifiers: Heart failure chronicity: acute on chronic Qualified Code(s): I50.33 - Acute on chronic diastolic (congestive) heart failure Code(s): I50.30 - Unspecified diastolic (congestive) heart failure (3) Severe aortic stenosis: Status: Acute Code(s): I35.0 - Nonrheumatic aortic (valve) stenosis (4) Hypoxia: Status: Acute Code(s): R09.02 - Hypoxemia (5) Congestive heart failure: Status: Acute Qualifiers: Heart failure chronicity: acute Heart failure type: unspecified Qualified Code(s): I50.9 - Heart failure, unspecified Code(s): I50.9 - Heart failure, unspecified Additional A&P Information Diastolic heart failure exacerbation likely due to valvular abnormality Currently on Lasix 40 mg p.o. daily. He has had good urine output of about 2 L. Monitor I's/O Severe aortic stenosis Option of valve replacement was discussed about 3 years ago, his technical services coordinator is in [place] Dr. Alexx Todd He is being managed medically Appreciate cardiology recommendations by Dr. Navas. Paroxysmal A. fib without RVR continue propafenone and labetalol for now No tachyarrhythmia Not a candidate to be on anticoagulation because of previous fall and history of intracranial bleed After his abdominal surgery for perforated gastric ulcer he was taken off aspirin as well due to anemia. hb now improved to 11.5. Will start ASA 81mg qd. This may be the safest option for now given previous h/o intracranial bleeding and recent anemia. Full code DVT prophylaxis: Lovenox Attestations Medical Necessity Statement*: Improving acute on chronic CHF exacerbation, likely to be discharged tomorrow. 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
--- NOTE | 2019-12-14 14:56 | PM.PN ---
Subjective Subjective: Interval history: Patient is feeling better. The urine output is improving. Denies chest pain or shortness of breath. No arrhythmias on the monitor. Seems to be staying in the sinus rhythm. No new symptoms. Medications: Reviewed: Yes Medication Review Details: Current Medications Albuterol/Ipratropium (Duoneb) 3 ml INHALATION Q4H.RESPIRATORY PRN PRN Reason: SHORTNESS OF BREATH Aspirin (Aspirin Ec) 81 mg PO DAILY [facility] Atorvastatin Calcium (Lipitor) 80 mg PO BEDTIME [facility] Last Admin: 12/13/19 20:43 Dose: 80 mg Documented by: Enoxaparin Sodium (Lovenox) 40 mg SUBCUT Q24H [facility] Last Admin: 12/13/19 22:57 Dose: 40 mg Documented by: Furosemide (Lasix) 40 mg PO DAILY@0800 [facility] Last Admin: 12/14/19 08:32 Dose: 40 mg Documented by: Labetalol HCl (Trandate) 100 mg PO BID [facility] Last Admin: 12/14/19 08:32 Dose: 100 mg Documented by: Morphine Sulfate (Morphine) 4 mg IVP Q4H PRN PRN Reason: SEVERE PAIN Ondansetron HCl (Zofran) 4 mg IVP Q6H PRN PRN Reason: NAUSEA AND VOMITING Propafenone HCl (Rythmol) 225 mg PO BID [facility] Last Admin: 12/14/19 08:32 Dose: 225 mg Documented by: Vitals/I&O/Wt Last Vital Signs Temp 97.8 F 12/14/19 04:00 Pulse 77 12/14/19 14:30 Resp 17 12/14/19 14:30 BP 102/59 12/14/19 14:30 Pulse Ox 92 12/14/19 14:30 12/13/19 12/14/19 12/14/19 22:59 06:59 14:59 Intake Total 50 / 850 350 / 350 Output Total 1400 / 1400 600 / 2000 Balance -1350 / -550 -600 / -1150 350 / 350 Weight last 48 hrs Weight 140 lb Physical Exam Narrative: EXAM NARRATIVE: GENERAL: The patient is alert and oriented times three. Not in any acute distress. HEENT: No significant pallor, icterus or lymphadenopathy.Oral cavity: There are no mucous membrane lesions. NECK: Trachea appears to be central. No masses noted. No JVD or thyromegaly appreciated. RESPIRATORY: Chest is symmetrical. No intercostals muscle retraction or any accessory muscle activation. There is no chest wall tenderness. Breath sounds are heard bilaterally. No rales or rhonchi heard. No evidence of any consolidation. BREASTS: Deferred. HEART: The first heart sound is very soft. Ejection systolic murmur grade 4/6 in the second aortic area. No diastolic murmurs. No pericardial rub. ABDOMEN: No vessel pulsations or distention. No tenderness. No organomegaly appreciated. Bowel sounds are normally heard. : Deferred. RECTAL: Deferred. LYMPHATIC: No lymphadenopathy noted in the neck or groin. EXTREMITIES: No edema or cyanosis. No clubbing. Peripheral pulses are palpated. Low amplitude and volume. MUSCULOSKELETAL: No acute joint deformities or swelling SKIN: There are no significant scars or skin rash noted. NEUROPSYCHIATRIC: The patient is alert and oriented x3. Appears to be in a good mood. No tremors or rigidity noted. Urinary Catheter Management^: Kramer: Cath Placed During This Visit: no Data : 12/13/19 03:35 12/13/19 03:35 Micro: Microbiology 12/12/19 19:28 Blood Culture - Preliminary Blood NEGATIVE TO DATE 12/12/19 19:20 Blood Culture - Preliminary Blood NEGATIVE TO DATE A&P Assessment and plan (1) Heart failure with preserved ejection fraction: Patient's heart failure is currently compensated. I may cut back on the dose of the Lasix to 20 mg p.o. daily. Continue other current medications as it is. Repeat BMP in the morning. Status: Acute Qualifiers: Heart failure chronicity: acute on chronic Qualified Code(s): I50.33 - Acute on chronic diastolic (congestive) heart failure Code(s): I50.30 - Unspecified diastolic (congestive) heart failure (2) Atrial fibrillation: Patient appears to be in sinus rhythm. May continue on the current medication. Because of the history of intracranial bleed, he is not a candidate for any long-term oral anticoagulation. Continuing the aspirin would be appropriate. Status: Acute Qualifiers: Atrial fibrillation type: longstanding persistent Qualified Code(s): I48.11 - Longstanding persistent atrial fibrillation Code(s): I48.91 - Unspecified atrial fibrillation (3) Severe aortic stenosis: In view of the heart failure and severe left ear, patient may benefit from aortic valve intervention. Because of his poor physical condition, transcutaneous valve intervention would be appropriate. Patient is willing to go ahead with this procedure. We will make the arrangements to have it done in [place], as per patient's request. Status: Acute Code(s): I35.0 - Nonrheumatic aortic (valve) stenosis (4) Elevated BUN: This could be related to the dialysis. It would be appropriate at this time to cut back on the dose of Lasix to 20 mg p.o. daily. May continue on the other current medications as these. BMP in the morning. Status: Acute Code(s): R79.9 - Abnormal finding of blood chemistry, unspecified Additional A&P Information I discussed in detail with the patient's granddaughter about the current status and further management options. Patient and the family are wanting to go back to [place] to have further evaluation management. If the patient continues remain stable, may be discharged home tomorrow. He may be transferred out of the ICU at this time. Attestations Medical Necessity Statement*: Patient may need to stay in the hospital for 1 more night for medication adjustment and close monitoring. If he continues to remain stable, may be discharged home tomorrow Coding Level of Care Code Acute Refrigerated Cargo Clerk for Ulysses Lozano Diagnoses Heart failure with preserved ejection fraction I50.33 Heart failure chronicity: acute on chronic Atrial fibrillation I48.11 Atrial fibrillation type: longstanding persistent Severe aortic stenosis I35.0 Elevated BUN R79.9
--- NOTE | 2019-12-14 15:44 | PC.NURSE ---
report given to 1st floor for transfer to room 101
[2019-12-14] MEDS: enoxaparin 40 mg/0.4 mL Syringe SUBCUT (22:16)
[2019-12-14] MEDS: atorvastatin 40 mg Tablet 80 MG PO (22:16)
[2019-12-15 04:12] LABS: Basophils % 0.4 %; Eosinophils # 0.1 10^3/uL (0.0-0.8); Eosinophils % 1.4 %; Hematocrit 33.6 % (42.0-52.0); Hemoglobin 11.3 g/dL (11.7-16.6); Lymphocytes # 0.7 10^3/uL (0.8-4.8); Lymphocytes % 9.3 %; Mean Corpuscular HGB Conc 33.6 g/dL (30.0-36.0); Mean Corpuscular Hemoglobin 30.1 pg (28.0-34.0); Mean Corpuscular Volume 89.4 fL (80-94); Mean Platelet Volume 10.1 fL (7.4-10.4); Monocytes % 12.3 %; Neutrophils # 5.9 10^3/uL (1.8-7.7); Neutrophils % 76.3 %; Nucleated Red Blood Cells % 0 %; Platelet Count 207 10^3/cmm (130-400); Red Blood Count 3.76 10^6/uL (4.1-5.3); Red Cell Distribution Width 12.4 % (12.1-15.1); White Blood Count 7.7 10^3/uL (4.0-10.0)
[2019-12-15 04:14] LABS: Alanine Aminotransferase 15 U/L (0-41); Albumin Level 3.2 g/dL (3.5-5.2); Alkaline Phosphatase 53 IU/L (40-130); Anion Gap 15.4 (5-19); Aspartate Amino Transferase 20 U/L (0-40); Blood Urea Nitrogen 23 mg/dL (8-23); Calcium 9.3 mg/dL (8.5-10.5); Carbon Dioxide 26 mmol/L (22-29); Chloride 99 mmol/L (98-107); Globulin 3.2 g/dL (1.3-4.6); Glucose 130 mg/dL (74-106); Potassium 4.4 mmol/L (3.5-5.1); Sodium 136 mmol/L (136-145); Total Bilirubin 0.6 mg/dL (0.15-1.2); Total Protein 6.4 g/dL (6.6-8.7)
[2019-12-15 05:21] VITALS: BP 148/74; PULSE 70; RESP 17; TEMP 36.8; O2SAT 92
[2019-12-15 07:22] VITALS: BP 141/74; PULSE 74; RESP 18; TEMP 36.7; O2SAT 90
[2019-12-15] MEDS: aspirin 81 mg EC Tablet PO (08:54)
[2019-12-15] MEDS: FUROsemide 20 mg Tablet PO (08:54)
[2019-12-15] MEDS: propafenone 150 mg Tablet 225 MG PO ×2 (08:55→18:07)
[2019-12-15] MEDS: labetalol 200 mg Tablet 100 MG PO ×2 (08:55→18:08)
--- NOTE | 2019-12-15 09:27 | DCPLANNER ---
Pg 2 of IM explained to and signed by pt. He states that he believes he is getting all straightened up and agrees with decisions made by the Dr. He is looking forward to d/c. Copy provided.
--- NOTE | 2019-12-15 10:09 | PM.PN ---
Subjective Subjective: Interval history: Patient is feeling okay. He has been ambulating on telemetry. No new arrhythmias are noted. Denies any chest pain or unusual shortness of breath. No fever or chills. No cough. No other specific complaints. The blood pressure has been staying relatively high since yesterday. Medications: Reviewed: Yes Medication Review Details: Current Medications Albuterol/Ipratropium (Duoneb) 3 ml INHALATION Q4H.RESPIRATORY PRN PRN Reason: SHORTNESS OF BREATH Aspirin (Aspirin Ec) 81 mg PO DAILY [facility] Last Admin: 12/15/19 08:54 Dose: 81 mg Documented by: Atorvastatin Calcium (Lipitor) 80 mg PO BEDTIME [facility] Last Admin: 12/14/19 22:16 Dose: 80 mg Documented by: Enoxaparin Sodium (Lovenox) 40 mg SUBCUT Q24H [facility] Last Admin: 12/14/19 22:16 Dose: 40 mg Documented by: Furosemide (Lasix) 20 mg PO DAILY@0800 [facility] Last Admin: 12/15/19 08:54 Dose: 20 mg Documented by: Labetalol HCl (Trandate) 100 mg PO BID [facility] Last Admin: 12/15/19 08:55 Dose: 100 mg Documented by: Morphine Sulfate (Morphine) 4 mg IVP Q4H PRN PRN Reason: SEVERE PAIN Ondansetron HCl (Zofran) 4 mg IVP Q6H PRN PRN Reason: NAUSEA AND VOMITING Propafenone HCl (Rythmol) 225 mg PO BID [facility] Last Admin: 12/15/19 08:55 Dose: 225 mg Documented by: Vitals/I&O/Wt Last Vital Signs Temp 98.1 F 12/15/19 07:22 Pulse 74 12/15/19 07:22 Resp 18 12/15/19 07:22 BP 141/74 12/15/19 07:22 Pulse Ox 90 12/15/19 07:22 12/14/19 12/15/19 12/15/19 22:59 06:59 14:59 Intake Total 240 / 590 350 / 940 360 / 360 Output Total 800 / 800 650 / 1450 Balance -560 / -210 -300 / -510 360 / 360 Physical Exam Narrative: EXAM NARRATIVE: GENERAL: The patient is alert and oriented times three. Not in any acute distress. HEENT: No significant pallor, icterus or lymphadenopathy.Oral cavity: There are no mucous membrane lesions. NECK: Trachea appears to be central. No masses noted. No JVD or thyromegaly appreciated. RESPIRATORY: Chest is symmetrical. No intercostals muscle retraction or any accessory muscle activation. There is no chest wall tenderness. Breath sounds are heard bilaterally. No rales or rhonchi heard. No evidence of any consolidation. BREASTS: Deferred. HEART: The first heart sound is very soft. Ejection systolic murmur grade 4/6 in the second aortic area. No diastolic murmurs. No pericardial rub. ABDOMEN: No vessel pulsations or distention. No tenderness. No organomegaly appreciated. Bowel sounds are normally heard. : Deferred. RECTAL: Deferred. LYMPHATIC: No lymphadenopathy noted in the neck or groin. EXTREMITIES: No edema or cyanosis. No clubbing. Peripheral pulses are palpated. Low amplitude and volume. MUSCULOSKELETAL: No acute joint deformities or swelling SKIN: There are no significant scars or skin rash noted. NEUROPSYCHIATRIC: The patient is alert and oriented x3. Appears to be in a good mood. No tremors or rigidity noted. Urinary Catheter Management^: Kramer: Cath Placed During This Visit: no Data : 12/15/19 03:17 12/15/19 03:17 Other Labs: Abnormal lab results 12/15/19 12/15/19 Range/Units 03:17 03:17 RBC 3.76 L (4.1-5.3) 10^6/uL Hgb 11.3 L (11.7-16.6) g/dL Hct 33.6 L (42.0-52.0) % Lymph # (Auto) 0.7 L (0.8-4.8) 10^3/uL [place] # (Auto) 1.0 H (0.2-0.9) 10^3/uL Glucose 130 H (74-106) mg/dL Total Protein 6.4 L (6.6-8.7) g/dL Albumin 3.2 L (3.5-5.2) g/dL A&P Assessment and plan (1) Heart failure with preserved ejection fraction: Patient's heart failure is currently compensated. He may continue on the current medications. The dose of the Lasix was cut back to 20 mg daily. Status: Acute Qualifiers: Heart failure chronicity: acute on chronic Qualified Code(s): I50.33 - Acute on chronic diastolic (congestive) heart failure Code(s): I50.30 - Unspecified diastolic (congestive) heart failure (2) Atrial fibrillation: Patient appears to be in sinus rhythm. May continue on the current medication. Because of the history of intracranial bleed, he is not a candidate for any long-term oral anticoagulation. Continuing the aspirin would be appropriate. Status: Acute Qualifiers: Atrial fibrillation type: longstanding persistent Qualified Code(s): I48.11 - Longstanding persistent atrial fibrillation Code(s): I48.91 - Unspecified atrial fibrillation (3) Severe aortic stenosis: In view of the heart failure and severe left ear, patient may benefit from aortic valve intervention. Because of his poor physical condition, transcutaneous valve intervention would be appropriate. Patient is willing to go ahead with this procedure. Advised the patient and the family to contact his primary city library director in [place] for an early appointment to discuss about the treatment options for the aortic valve stenosis. Status: Acute Code(s): I35.0 - Nonrheumatic aortic (valve) stenosis (4) Elevated BUN: This could be related to the diuresis. It would be appropriate at this time to cut back on the dose of Lasix to 20 mg p.o. daily. May continue on the other current medications as these. BMP in the morning. Status: Acute Code(s): R79.9 - Abnormal finding of blood chemistry, unspecified Additional A&P Information I discussed in detail with the patient's granddaughter about the current status and further management options. Patient and the family are wanting to go back to [place] to have further evaluation management. If the blood pressure remained stable, may be discharged home today Attestations Medical Necessity Statement*: Possible discharge home today Coding Level of Care Code Acute Lumber Mover for Ulysses Lozano Diagnoses Heart failure with preserved ejection fraction I50.33 Heart failure chronicity: acute on chronic Atrial fibrillation I48.11 Atrial fibrillation type: longstanding persistent Severe aortic stenosis I35.0 Elevated BUN R79.9
--- NOTE | 2019-12-15 12:02 | PC.CHAP ---
Pastoral Care Encounter/Spiritual Assessment Type of Contact [] Declined mixer dry food products visit [] Patient/Family/Request visit [] Outpatient visit [] Follow-up visit [] Physician referral [] Code/Alert [x] Routine visit [] Staff referral [] Actively dying [] Patient sleeping [] Family support [] [] Out of room [] Palliative care [] [] Receiving care in room [] Pre-surgical visit [] Trauma [] Long length of stay [] ICU visit [] Other: Relational/Emotional Strength [x] Patient feels connected with others/family/visitors/staff [] Distress [] Loneliness/isolation [] Abandonment Spirituality of Patient [x] Person of Lisbeth [] Attends Oriental Orthodox of their Lisbeth [x] Believes in Prayer [x] Reads Bible or Hoahaoism materials [] There are Spiritual issues to be addressed Certified Scrum Master Interventions [x] Prayer [x] Active listening [x] Non-anxious presence [x] Spiritual/emotional support [] Crisis/trauma care [x] Spiritual counseling [] Bereavement support [] Provided bereavement packet [] Provided Bible/devotional materials [] Provided toy/stuffed animal, coloring book to patient or family member [] Provided Communion [] Anointing/Pimento [] Salvation [x] Completed spiritual assessment [] Other: Impact on Illness or Injury [] Angry [] Fearful [] Anxious [] Often cries [] Exhaustion [] Unable to work [] Unable to attend presybeterian [] Unable to walk/stand [] Unable to read [] Unable to drive [] Unable to eat/drink [] Unable to sleep [] Unable to be with family [] Patient intubated [] Other: Summary Pt.in very good spirits, smiling, was reading Bible when Certified Scrum Master entered his room. Ready for family to take him home. Time spent with patient 15 min.
[2019-12-15 12:54] VITALS: BP 88/66; PULSE 74; RESP 20; TEMP 36.7; O2SAT 94
[2019-12-15 13:37] VITALS: O2SAT 87; O2SAT 93; O2SAT 94
[2019-12-15 16:37] VITALS: BP 167/80; PULSE 78; RESP 20; TEMP 36.8; O2SAT 91
--- NOTE | 2019-12-15 16:51 | PM.DCS ---
Discharge Providers Date of Admission: 12/12/19 21:09 Date of Discharge: Date of Discharge: December 15, 2019 Attending Provider at Admission: Wiley Morelos MD Attending Provider at Discharge: Jon House MD Diagnoses at Discharge Discharge Diagnosis (1) Heart failure with preserved ejection fraction: Status: Acute Qualifiers: Heart failure chronicity: acute on chronic Qualified Code(s): I50.33 - Acute on chronic diastolic (congestive) heart failure (2) Atrial fibrillation: Status: Acute Qualifiers: Atrial fibrillation type: longstanding persistent Qualified Code(s): I48.11 - Longstanding persistent atrial fibrillation (3) Severe aortic stenosis: Status: Acute (4) Elevated BUN: Status: Acute (5) Hypoxemia requiring supplemental oxygen: Status: Acute Problem details: Patient requires oxygen with ambulation only. Reason for Visit Reason for Visit: Reason For Visit: ACUTE CHF EXACERBATION Hospital Course Discharge Summary: Patient presented with acuteOn chronic diastolic CHF exacerbation. He was diuresed and gradually improved and this morning reports feeling much better and wants to go home. His medical history is complicated by severe aortic stenosis with recommendation to be evaluated for aortic valve replacement/TAVR which patient wants to do after discussing with his primary school age lead teacher Alexx Rodriguez and will make an appointment to see him earliest possible. His amlodipine was initially held and patient's blood pressure was on the higher side. After aggressive diuresis he had episode of hypotension. It was recommended for patient to be only on 20 mg daily of Lasix and therefore I will discontinue hydrochlorothiazide and restart patient's amlodipine.I have extensive discussion with patient regarding importance of close blood pressure and heart rate monitoring due to underlying severe aortic stenosis and high risk of getting symptomatic especially with drop in blood pressure given fixed cardiac output. Patient voiced understanding and keep blood pressure and heart rate log 3 times daily to present to primary care physicianand school age lead teacher next visit for medication adjustment. this afternoon patient noted to have Kramer catheter which will be removed and we will make sure that patient can urinate prior to discharge. He underwent home O2 eval with saturation down to 87% qualifying for 2 L with exertion and this was requested. Discussed with patient if he needs home health and patient reports that he has enough daytime help and that his family members will stay with him for now. Down the road he may consider hiring one more person to stay with patient at nighttime. He feels safe and comfortable living alone and does not want to consider any placement. He is currently off anticoagulation because of previous history of intracranial bleed. Baby aspirin was started this hospitalization. Physical Exam Resp: COMMON NORMALS: normal respiratory effort and clear to auscultation bilaterally AUSCULTATION: clear to auscultation bilaterally Cardio: COMMON NORMALS: regular rhythm; negative for no murmurs (3 out of 6systolic murmur best heard at the left sternal border) RHYTHM: regular rhythm GI: COMMON NORMALS: normal to inspection, nondistended, normoactive bowel sounds, soft to palpation and non-tender PALPATION: Yes soft Extremity: OTHER: No lower extremity edema bilaterally Urinary Catheter Management^: Kramer: Cath Placed During This Visit: no Discharge Data Data Completed and Pending: Completed Studies During Hospitalization Category Date Time Status XR chest 1V porfirio ble [id number] Stat Exams 12/12/19 18:56 Completed Pending at discharge Category Date Time Status Blood Culture Sta t Lab 12/12/19 19:28 Results Labs from last 24 hours 12/15/19 12/15/19 03:17 03:17 WBC 7.7 RBC 3.76 L Hgb 11.3 L Hct 33.6 L MCV 89.4 MCH 30.1 MCHC 33.6 RDW 12.4 Plt Count 207 MPV 10.1 Neut % (Auto) 76.3 Lymph % (Auto) 9.3 [place] % (Auto) 12.3 Eos % (Auto) 1.4 Baso % (Auto) 0.4 Neut # (Auto) 5.9 Lymph # (Auto) 0.7 L [place] # (Auto) 1.0 H Eos # (Auto) 0.1 Baso # (Auto) 0.0 Nucleated RBC % (a uto) 0 Nucleated RBCs # 0.0 Sodium 136 Potassium 4.4 Chloride 99 Carbon Dioxide 26 Anion Gap 15.4 BUN 23 Creatinine 1.0 Glucose 130 H Calcium 9.3 Total Bilirubin 0.6 AST 20 ALT 15 Alkaline Phosphata se 53 Total Protein 6.4 L Albumin 3.2 L Globulin 3.2 Vitals: Last Vital Signs Temp 98.2 F 12/15/19 16:37 Pulse 78 12/15/19 16:37 Resp 20 H 12/15/19 16:37 BP 167/80 12/15/19 16:37 Pulse Ox 91 12/15/19 16:37 Discharge Plan Discharge Patient Disposition: Home, Self-Care Condition: Stable Prescriptions: New aspirin 81 mg Tablet,Delayed Release (Dr/Ec) 81 mg PO DAILY 30 Days Qty: 30 RF: 0 furosemide 20 mg Tablet 20 mg PO DAILY@0800 Qty: 30 RF: 0 Continued labetalol 200 mg tablet 100 mg PO BID RF: 0 amlodipine 2.5 mg tablet 2.5 mg PO BID RF: 0 propafenone 225 mg tablet 225 mg PO BID RF: 0 pantoprazole 40 mg tablet,delayed release (DR/EC) 40 mg PO DAILY RF: 0 folic acid 1 mg tablet 1 mg PO DAILY RF: 0 rosuvastatin 20 mg tablet 20 mg PO BEDTIME RF: 0 Discontinued hydrochlorothiazide 25 mg tablet 6.25 mg PO DAILY RF: 0 Other Ambulatory Orders: DME: Oxygen (Order) Location: None Selected Ordered By: Jon House Referrals: Alexx Rodriguez [Other] (Patient to follow-up earliest possible. Patient to arrange appointment.) [facility] [Outside] Nba Dinh MD [Family Provider] - Discharge Diet: Usual diet Discharge Activity: Resume usual activity Activity Restrictions/Additional Instructions: Please call your doctor or present to emergency department if your condition worsens or you develop diarrhea, Lightheadedness, fatigue or see blood in your stool or black stool. Please keep blood pressure and heart rate log 3 times daily to present to primary care physician and your school age lead teacher next visit for medication adjustment. Discharge Attestations Time Spent in Discharge Care*: greater than 30 min Quality Metrics Clinical Quality Measures During this hospital stay, did patient experience: None Coding Level of Care Code Acute Living Coach for Ulysses Fwd Diagnoses Heart failure with preserved ejection fraction I50.33 Heart failure chronicity: acute on chronic Atrial fibrillation I48.11 Atrial fibrillation type: longstanding persistent Severe aortic stenosis I35.0 Elevated BUN R79.9 Hypoxemia requiring supplemental oxygen R09.02; Z99.81
--- NOTE | 2019-12-15 16:53 | PC.NURSE ---
AT 1618 EDUARDO CATHETER WAS REMOVED. 10ML N.S. REMOVED FROM CATHETER. CATHETER PULLED. PATIENT TOLERATED WELL.
[2019-12-15 18:19] VITALS: BP 167/80; PULSE 78; RESP 20; TEMP 36.8; O2SAT 91
== END 2019-12-15 19:27 | disposition home or self-care (01) | DRG 292 ==
LOC: ER 22:08 → ICU 22:09 → CSU 12-14 15:55 → ICU 12-15 07:31 → CSU 12-15 07:42
PROVIDERS: Student in an Organized Health Care Education/Training Program; Admitting Provider Internal Medicine; Emergency Provider Emergency Medicine; Family Provider Family Medicine; Visit Provider Internal Medicine
DX: I11.0 Hypertensive heart disease with heart failure (principal); I48.20 Chronic atrial fibrillation, unspecified; I48.11 Longstanding persistent atrial fibrillation; I50.33 Acute on chronic diastolic (congestive) heart failure; I35.0 Nonrheumatic aortic (valve) stenosis; R09.02 Hypoxemia; I48.0 Paroxysmal atrial fibrillation; E78.5 Hyperlipidemia, unspecified; Z85.46 Personal history of malignant neoplasm of prostate; Z85.828 Personal history of other malignant neoplasm of skin; Z88.8 Allergy status to other drugs, medicaments and biological substances; Z79.899 Other long term (current) drug therapy; Z87.891 Personal history of nicotine dependence; J43.9 Emphysema, unspecified; E86.0 Dehydration; I95.9 Hypotension, unspecified
CPT/HCPCS: 12345; 36415; 36600; 51702; 71045; 80048; 80053; 82803; 83605; 83880; 84484; 85025; 87040; 93005; 94640; 94660; 96372; 96374; 97110; 97116; 97161; 97530; 99283; J1650; J1940; J1956

== ENCOUNTER 2020-01-07 14:54 | Outpatient (CLI) | payer MEDICARE, BC, SELFPAY ==
--- NOTE | 2020-01-07 | XR_ITS ---
WS: [id number] SHOULDER RIGHT TECHNIQUE: 3 views of the right shoulder CLINICAL INFORMATION: RIGHT SHOULDER PAIN COMPARISON: None. FINDINGS: Moderate degenerative changes at the AC joint. Slight downsloping of the acromion. Rotator cuff arthr opathy. Right clavicle is normal. Vascular calcification. XR/XR shoulder RT min 2V* [id number] IMPRESSION: 1. Moderate degenerative arthritis at the AC joint. 2. Rotator cuff arthropathy. 3. No acute fractures
== END 2020-01-07 14:55 | disposition home or self-care (01) ==
LOC: RADOUTREAD 01-08 08:22
PROVIDERS: Family Provider Family Medicine; Visit Provider Family Medicine
DX: Z76.89 Persons encountering health services in other specified circumstances (principal)

== ENCOUNTER 2020-04-29 14:10 | Outpatient (RCR) | payer MEDICARE, BC, SELFPAY | END 2020-05-12 23:59 | disposition home or self-care (01) | LOC: CR 14:10 | PROVIDERS: Family Provider Family Medicine; PCP Internal Medicine Cardiovascular Disease; Visit Provider Internal Medicine Cardiovascular Disease | DX: Z95.2 Presence of prosthetic heart valve (principal) | CPT/HCPCS: 93798 ==

== ENCOUNTER 2020-05-13 09:29 | Outpatient (RCR) | payer MEDICARE, BC, SELFPAY | END 2020-06-12 23:59 | disposition home or self-care (01) | LOC: CR 09:29 | PROVIDERS: Family Provider Family Medicine; PCP Internal Medicine Cardiovascular Disease; Visit Provider Internal Medicine Cardiovascular Disease | DX: Z95.2 Presence of prosthetic heart valve (principal) | CPT/HCPCS: 93798 ==

== ENCOUNTER 2020-06-16 09:27 | Outpatient (RCR) | payer MEDICARE, BC, SELFPAY | END 2020-07-13 23:59 | disposition home or self-care (01) | LOC: CR 09:27 | PROVIDERS: Family Provider Family Medicine; PCP Internal Medicine Cardiovascular Disease; Visit Provider Internal Medicine Cardiovascular Disease | DX: Z95.2 Presence of prosthetic heart valve (principal) | CPT/HCPCS: 93798 ==

== ENCOUNTER 2020-07-14 12:51 | Outpatient (RCR) | payer MEDICARE, BC, SELFPAY | END 2020-08-12 23:59 | disposition home or self-care (01) | LOC: CR 12:51 | PROVIDERS: Family Provider Family Medicine; PCP Internal Medicine Cardiovascular Disease; Visit Provider Internal Medicine Cardiovascular Disease | DX: Z95.2 Presence of prosthetic heart valve (principal) | CPT/HCPCS: 93798 ==

== ENCOUNTER 2020-08-14 08:50 | Outpatient (RCR) | payer MEDICARE, BC, SELFPAY | END 2020-09-12 23:59 | disposition home or self-care (01) | LOC: CR 08:50 | PROVIDERS: Family Provider Family Medicine; PCP Internal Medicine Cardiovascular Disease; Visit Provider Internal Medicine Cardiovascular Disease | DX: Z95.2 Presence of prosthetic heart valve (principal) | CPT/HCPCS: 93798 ==

== ENCOUNTER 2020-09-13 10:48 | Outpatient (RCR) | payer MEDICARE, BC, SELFPAY | END 2020-10-12 23:59 | disposition home or self-care (01) | LOC: CR 10:48 | PROVIDERS: Family Provider Family Medicine; PCP Internal Medicine Cardiovascular Disease; Visit Provider Internal Medicine Cardiovascular Disease | DX: Z95.5 Presence of coronary angioplasty implant and graft (principal) | CPT/HCPCS: 93798 ==

== ENCOUNTER 2020-10-13 11:02 | Outpatient (RCR) | payer MEDICARE, BC, SELFPAY | END 2020-11-12 23:59 | disposition home or self-care (01) | LOC: CR 11:02 | PROVIDERS: Family Provider Family Medicine; PCP Internal Medicine Cardiovascular Disease; Visit Provider Internal Medicine Cardiovascular Disease | DX: Z95.2 Presence of prosthetic heart valve (principal) | CPT/HCPCS: 93798 ==

== ENCOUNTER 2021-07-14 13:12 | Outpatient (CLI) | payer MEDICARE, BC, SELFPAY ==
--- NOTE | 2021-07-14 13:17 | CT_ITS ---
WS: [id number] CT CHEST TECHNIQUE: Contrast enhanced CT of the chest with coronal and sagittal reformatted images. CLINICAL INFORMATION: LYMPHADENOPATHY COMPARISON: None. DLP: 620.[address] [facility] at least one of these dose optimization techniques: automated e xposure control; mA and/or kV adjustment per patient size (includes targeted exams where dose is matc hed to clinical indication); or iterative reconstruction. FINDINGS: Moderate chronic emphysematous changes. No acute pulmonary infiltrates. No focal consolidation or ple ural fluid. Slight fibrosis in the lung apices. Aortic calcification. Normal caliber thoracic aorta. Proximal main pulmonary arteries are normal. No mediastinal or hilar lymphadenopathy. Adrenal glands are normal. Normal renal parenchymal enhancement. Bilateral renal cysts partially visu alized largest right upper pole measuring 3.9 x 3.9CM. Hepatomegaly with diffuse infiltration the silas er. Aortic valve replacement. Enhancing lesion right hepatic lobe likely cavernous hemangioma measuri ng 1.8 cm unchanged since 2019 CT/CT chest w con* [id number] IMPRESSION: 1. Noncalcified nodule right lower lobe laterally measuring 4 mm. Additional s ubcentimeter noncalcified pulmonary nodules left lower lobe measuring 3-4 pawel meters. These appear relatively stable since CT abdomen pelvis 2019. Recommend 12 month follow-up. 2. Moderate chronic emphysematous changes. No acute pulmonary infiltrates. 3. Subsegmental atelectasis in the lung bases. Pleural thickening left lower l obe. 4. No mediastinal or hilar lymphadenopathy. 5. Hepatomegaly with diffuse fatty infiltration of the liver. 6. Partially visualized renal cysts.
[2021-07-14 13:50] LABS: Blood Urea Nitrogen 25 mg/dL (8-23)
[2021-07-14] MEDS: iodixanol 320 mg/mL 100mL Btl IV (14:04)
== END 2021-07-14 13:13 | disposition home or self-care (01) ==
PROVIDERS: PCP Family Medicine; Visit Provider Family Medicine
DX: R59.1 Generalized enlarged lymph nodes (principal); Q61.02 Congenital multiple renal cysts; R16.0 Hepatomegaly, not elsewhere classified; K76.0 Fatty (change of) liver, not elsewhere classified; J98.11 Atelectasis; R91.1 Solitary pulmonary nodule
CPT/HCPCS: 71260; 82565; 84520; Q9967

== ENCOUNTER → 2022-01-10 14:57 | Outpatient (BNVA) | payer MEDICARE, BC, SELFPAY | PROVIDERS: PCP Family Medicine; Visit Provider Podiatrist Foot & Ankle Surgery | DX: S99.921A Unspecified injury of right foot, initial encounter (principal); X58.XXXA Exposure to other specified factors, initial encounter | CPT/HCPCS: 73630 ==

== ENCOUNTER 2022-02-23 11:08 | Outpatient (CLI) | payer MEDICARE, BC, SELFPAY ==
--- NOTE | 2022-02-23 13:48 | PFTS_ITS ---
Date of Study:02/23/22 Date of Dictation: MECHANICS: Forced vital capacity (FVC) is normal. Forced expiratory volume in one second (FEV1) is reduced. FEV1/FVC is reduced. FLOW VOLUME LOOP: Reduced flow at all lung volumes with scooping. LUNG VOLUMES: Total lung capacity (TLC) is normal. Residual volume (RV) is increased. DIFFUSING CAPACITY FOR CARBON MONOXIDE: Moderately reduced. INTERPRETATION: The postbronchodilator spirometry is consistent with moderate airflow obstruction. There is some postbronchodilator response. Lung volumes are consistent with air trapping. Gas exchange (DLCO) is moderately reduced. MTDD
== END 2022-02-23 11:09 | disposition home or self-care (01) ==
LOC: RT 11:14
PROVIDERS: PCP Family Medicine; Visit Provider Internal Medicine Pulmonary Disease
DX: J44.9 Chronic obstructive pulmonary disease, unspecified (principal)
CPT/HCPCS: 94060; 94618; 94726; 94729; J7611

== ENCOUNTER → 2022-06-08 13:49 | Outpatient (BNVA) | payer MEDICARE, BC, SELFPAY | PROVIDERS: PCP Family Medicine; Visit Provider Podiatrist Foot & Ankle Surgery | DX: M79.671 Pain in right foot (principal); M79.673 Pain in unspecified foot; M20.11 Hallux valgus (acquired), right foot; L60.3 Nail dystrophy; Q82.8 Other specified congenital malformations of skin; L84 Corns and callosities; M20.41 Other hammer toe(s) (acquired), right foot; M20.42 Other hammer toe(s) (acquired), left foot; I73.9 Peripheral vascular disease, unspecified | CPT/HCPCS: 11721; 17110 ==

== ENCOUNTER → 2022-08-31 13:39 | Outpatient (BNVA) | payer MEDICARE, BC, SELFPAY | PROVIDERS: PCP Family Medicine; Visit Provider Podiatrist Foot & Ankle Surgery | DX: I73.9 Peripheral vascular disease, unspecified (principal); L84 Corns and callosities; M20.11 Hallux valgus (acquired), right foot; M20.41 Other hammer toe(s) (acquired), right foot; M20.42 Other hammer toe(s) (acquired), left foot; L60.3 Nail dystrophy; Q82.8 Other specified congenital malformations of skin | CPT/HCPCS: 11721 ==

== ENCOUNTER → 2022-12-02 12:18 | Outpatient (BNVA) | payer MEDICARE, BC, SELFPAY | PROVIDERS: PCP Family Medicine; Visit Provider Podiatrist Foot & Ankle Surgery | DX: I73.9 Peripheral vascular disease, unspecified (principal); L84 Corns and callosities; M20.11 Hallux valgus (acquired), right foot; M20.41 Other hammer toe(s) (acquired), right foot; M20.42 Other hammer toe(s) (acquired), left foot; L60.3 Nail dystrophy; Q82.8 Other specified congenital malformations of skin | CPT/HCPCS: 11721 ==

== ENCOUNTER → 2022-12-28 10:31 | Outpatient (BNVA) | payer MEDICARE, BC, SELFPAY | PROVIDERS: PCP Family Medicine; Visit Provider Podiatrist Foot & Ankle Surgery | DX: I73.9 Peripheral vascular disease, unspecified (principal); L97.522 Non-pressure chronic ulcer of other part of left foot with fat layer exposed; L84 Corns and callosities; M20.11 Hallux valgus (acquired), right foot; M20.41 Other hammer toe(s) (acquired), right foot; M20.42 Other hammer toe(s) (acquired), left foot; L60.3 Nail dystrophy; Q82.8 Other specified congenital malformations of skin | CPT/HCPCS: 73630; 99214 ==

== ENCOUNTER → 2023-01-04 14:53 | Outpatient (BNVA) | payer MEDICARE, BC, SELFPAY | PROVIDERS: PCP Family Medicine; Visit Provider Podiatrist Foot & Ankle Surgery | DX: I73.9 Peripheral vascular disease, unspecified (principal); L97.522 Non-pressure chronic ulcer of other part of left foot with fat layer exposed; L84 Corns and callosities; M20.11 Hallux valgus (acquired), right foot; M20.41 Other hammer toe(s) (acquired), right foot; M20.42 Other hammer toe(s) (acquired), left foot; L60.3 Nail dystrophy; Q82.8 Other specified congenital malformations of skin | CPT/HCPCS: 99213 ==

== ENCOUNTER → 2023-01-25 13:10 | Outpatient (BNVA) | payer MEDICARE, BC, SELFPAY | PROVIDERS: PCP Family Medicine; Visit Provider Podiatrist Foot & Ankle Surgery | DX: I73.9 Peripheral vascular disease, unspecified (principal); M20.11 Hallux valgus (acquired), right foot; M20.41 Other hammer toe(s) (acquired), right foot; M20.42 Other hammer toe(s) (acquired), left foot; L60.3 Nail dystrophy; Q82.8 Other specified congenital malformations of skin; L84 Corns and callosities; L97.522 Non-pressure chronic ulcer of other part of left foot with fat layer exposed | CPT/HCPCS: 99213 ==

== ENCOUNTER → 2023-02-08 14:20 | Outpatient (BNVA) | payer MEDICARE, BC, SELFPAY | PROVIDERS: PCP Family Medicine; Visit Provider Podiatrist Foot & Ankle Surgery | DX: I73.9 Peripheral vascular disease, unspecified (principal); M20.11 Hallux valgus (acquired), right foot; L97.522 Non-pressure chronic ulcer of other part of left foot with fat layer exposed; M20.41 Other hammer toe(s) (acquired), right foot; M20.42 Other hammer toe(s) (acquired), left foot; L60.3 Nail dystrophy; L84 Corns and callosities | CPT/HCPCS: 99214 ==

== ENCOUNTER 2023-02-13 11:39 | Emergency (ER) | payer MEDICARE, BC, SELFPAY ==
[2023-02-13] VITALS (8 sets, daily range): BP systolic 150–176; BP diastolic 65–81; PULSE 74–79; RESP 10–17; TEMP 36.7; O2SAT 87–98; BMI 17.6
--- NOTE | 2023-02-13 11:42 | ECG_ITS ---
[facility] Test Date: 2023-02-13 Pat Name: Elio Sellers Department: Room: Gender: Male Change Of Address Clerk: : 1940 Requested By: Duane Carney Order Number: [id number] Bette MD: Tao Giang M.D. Measurements Intervals [place] Rate: 75 P: 92 W[place]: 144 QRS: -9 QRSD: 139 T: 132 QT: 423 QTc: 475 Interpretive Statements SINUS RHYTHM INTRAVENTRICULAR CONDUCTION DELAY [130+ ms QRS DURATION] LEFT VENTRICULAR HYPERTROPHY AND ST-T CHANGE [VOLTAGE CRITERIA PLUS ST/T ABNORMALITY] POSSIBLE ANTERIOR MYOCARDIAL INFARCTION , OF INDETERMINATE AGE [30 ms Q WAVE IN V3/V4, OR R < 0.2 mV IN V4] Compared to ECG 12/12/2019 20:35:09 Intraventricular conduction delay now present ST (T wave) deviation still present Myocardial infarct finding still present Electronically Signed On 02-13-2023 13:05:31 CDT by Tao Giang M.D. [id number]
--- NOTE | 2023-02-13 11:42 | XR_ITS ---
WS: [id number] XR chest 1V portable [id number] REASON FOR EXAM: dyspnea/cough FINDINGS: The chest is unchanged compared to 04/03/2020. Aortic stent valve replacement. Remainder of the heart and mediastinum are within normal limits. Calcified granulomatous disease in both hemithoraces. Lucencies seen in both hemithoraces compatible with central lobar emphysema and bullous lung disease. No acute or subacute pulmonary parenchymal or pleural abnormality is noted. XR/XR chest 1V portable [id number] IMPRESSION: Stable abnormal chest.
--- NOTE | 2023-02-13 11:59 | CT_ITS ---
WS: [id number] CT LUMBAR SPINE, noncontrast. HISTORY: Fall with back pain. TECHNIQUE: Contiguous 2.0 mm axial imaging are performed. Sagittal and coronal reformats are submitte d and reviewed. All CT scans at [facility] use at least one of these dose optimization techni ques: automated exposure control; mA and/or kV adjustment per patient size (includes targeted exams w here dose is matched to clinical indication); or iterative reconstruction. IV contrast: None DLP: 1130.18 mGy.cm COMPARISON: 09/19/2019 Mild straightening of the normal lumbar lordosis. L4 anterolisthesis is 6 mm. Acute L4 compression fr acture with vertical and transverse components. Loss of the normal height of the vertebral body. No d efinite fracture extending into the pedicles. Chronic fracture at L5. Diffuse osteopenia. L1-2: Mild disc bulge. No stenosis. L2-3: Mild annular disc bulge with encroachment upon the subarticular recesses. Mild bilateral subart icular recess stenosis and encroachment. Nondisplaced but age indeterminate L2 RIGHT transverse proce ss fracture. This may not be acute as there is some callus formation. L3-4: Mild annular disc bulge. Marked ligamentum flavum and facet arthritis. RIGHT subarticular disc protrusion. Partially healed RIGHT L3 transverse process fracture. L4-5: Diffuse annular disc bulging with ligamentum flavum and facet arthritis. Mild central with mode rate bilateral subarticular recess stenosis. Mild foraminal stenosis. Slightly greater encroachment i nto the RIGHT lateral recess. No acute transverse process fracture. L5-S1: Annular disc bulge with a LEFT foraminal disc protrusion. Moderate to severe LEFT foraminal st enosis. No sacral fracture identified. Osteopenia. Moderate atherosclerosis abdominal aorta. Heavy calcificat ion in the splenic artery. Sigmoid diverticulosis. Low-attenuation masses LEFT kidney are probably cy sts. CT/CT lumbar spine wo con* [id number] IMPRESSION: 1. Acute complex fracture involving L4. No extension into the posterior elemen ts. No retropulsion of the vertebral body. 2. Partially healed nondisplaced fractures involving the RIGHT L2 and L3 trans verse processes. Subacute fractures. 3. Remote L5 compression fracture. 4. Mild bilateral subarticular recess stenosis at L2-3. 5. Moderate to severe LEFT foraminal stenosis at L5-S1. 6. Mild central and subarticular recess stenosis L3-4. Suspect RIGHT subarticu lar disc protrusion contacting the traversing RIGHT L4 nerve root. 7. Mild central with moderate bilateral subarticular recess stenosis at L4-5.
--- NOTE | 2023-02-13 11:59 | W.ED.FALL ---
HPI - Fall General: Chief Complaint: Fall Stated Complaint: MULTIPLE FALLS/ WEAKNESS Time Seen by Provider: 02/13/23 11:42 Source: patient Mode of arrival: ambulatory History of Present Illness: 82-year-old male presents emergency room multiple falls at home over the last couple of weeks denies striking his head there is no loss consciousness he is not currently taking any blood thinners he has had increasing low back pain landed on his back with several of these falls still able to function and get around no difficulty fecal incontinence or urinary retention. Family at the bedside relates he is a heavy drinker complaint: fall Onset (ago): minute(s) Fall from: standing Fall witnessed: yes, by family Place fall occurred: home Loss of consciousness: None Prolonged down time: no Symptoms prior to fall: none Context: history of frequent falls Location of injury: back Associated symptoms-after fall: Denies abdominal pain, chest pain, confusion, difficulty walking, headache(s), hematuria, lightheadedness, neck pain, numbness, short of breath, vertigo or weakness Review of Systems Const: Denies: fever(s), chills, body aches, change in appetite, fatigue or malaise ENMT: Denies: throat pain, ear or mastoid pain, nasal discharge or nasal congestion Card: Denies: chest pain or lightheadedness Resp: Denies: dyspnea, productive cough or non-productive cough GI: Denies: abdominal pain : Denies: hematuria Musc: Denies: neck pain Skin/Breast: Denies: rash or pruritus Neuro: Denies: headache(s), difficulty walking, vertigo or confusion PFSH ED PFSH: Medical History Atrial fibrillation COPD (chronic obstructive pulmonary disease) Diastolic dysfunction Heart failure with preserved ejection fraction HTN (hypertension) Hx of subarachnoid hemorrhage Hyperlipidemia Hypoxemia requiring supplemental oxygen Patient requires oxygen with ambulation only. Mild aortic regurgitation Mild pulmonary hypertension Perforated duodenal ulcer Peripheral neuropathy Prostate cancer PUD (peptic ulcer disease) Severe aortic stenosis Skin cancer Spontaneous pneumothorax Surgical History H/O exploratory laparotomy History of colon surgery History of lung surgery Hx of prostatectomy Hx of tonsillectomy Family History Other Diabetes Hypertension Denies family history of CAD (coronary artery disease) Cancer Social History Smoking and tobacco status: former smoker Quit status (tobacco): has quit using tobacco Year quit tobacco: Former quit date comment: 1ppd x 15 years Alcohol intake: current Alcohol intake frequency: 0-2 Drinks per Day Physical Exam Const: COMMON NORMALS: no acute distress GENERAL APPEARANCE: cooperative and comfortable ORIENTATION/CONSCIOUSNESS: Yes awake, Yes oriented to person, Yes oriented to place and Yes oriented to time HENMT: COMMON NORMALS: normocephalic, atraumatic and hearing grossly normal bilaterally HEAD & SCALP: normocephalic and atraumatic Resp: COMMON NORMALS: normal respiratory effort, No retractions, No use of accessory muscles and clear to auscultation bilaterally AUSCULTATION: clear to auscultation bilaterally Cardio: COMMON NORMALS: regular rate, regular rhythm and No murmurs present (Cardio) RATE: regular rate RHYTHM: regular rhythm GI: COMMON NORMALS: Soft to palpation and No hepatosplenomegaly present AUSCULTATION: Yes normoactive bowel sounds PALPATION: Yes Soft to palpation, No Tenderness to palpation present (GI), No Guarding due to palpation present (GI) and Yes No hepatosplenomegaly present Extremity: COMMON NORMALS: normal to inspection, capillary refill normal, no clubbing, cyanosis or edema, no calf tenderness and no pedal edema Neuro: SENSORIUM/ORIENTATION: Yes oriented to person, Yes oriented to place and Yes oriented to time Skin: COMMON NORMALS: no rashes or lesions noted GENERAL SKIN EXAM: no rashes or lesions noted Course Vital Signs: Vital signs: Vital Signs Temperature 98.1 F 02/13/23 11:44 Pulse Rate 74 02/13/23 15:30 Respiratory Rate 15 02/13/23 15:30 Blood Pressure 176/81 02/13/23 15:30 Pulse Oximetry 97 02/13/23 15:30 Oxygen Delivery Me thod 02/13/23 11:44 MDM - Fall Medical Decision Making Vertebral compression fracture [place] old transverse process fractures discharge patient home we discussed using a TLSO brace however elevated patient will be able to use it very well ultimately decided against it hydrocodone for pain we will set him up for appointment with orthopedic spine as per surgery for evaluation for kyphoplasty. Long discussion regarding his alcohol use which I think is contributing to his falls encouraged him to abstain. He is not short of breath on exam repeat exam his lungs are clear. He had a brief period of time where he did require oxygen at the time of discharge his oxygen sats are good we will discharge him home follow-up with Ortho Medical Records I reviewed the patient's medical records. Lab Data I reviewed the patient's lab results. 02/13/23 11:50 02/13/23 11:50 Radiology Impressions Chest X-Ray 02/13/23 11:42 IMPRESSION: Stable abnormal chest. Lumbar Spine CT 02/13/23 11:59 IMPRESSION: 1. Acute complex fracture involving L4. No extension into the posterior elements. No retropulsion of the vertebral body. 2. Partially healed nondisplaced fractures involving the RIGHT L2 and L3 transverse processes. Subacute fractures. 3. Remote L5 compression fracture. 4. Mild bilateral subarticular recess stenosis at L2-3. 5. Moderate to severe LEFT foraminal stenosis at L5-S1. 6. Mild central and subarticular recess stenosis L3-4. Suspect RIGHT subarticular disc protrusion contacting the traversing RIGHT L4 nerve root. 7. Mild central with moderate bilateral subarticular recess stenosis at L4-5. Cervical Spine X-Ray 02/13/23 12:06 IMPRESSION: No visible fracture. Assessment for acute fracture is limited due to incomplete visualization of the cervical spine and degenerative disease. Recommend cervical spine CT if there is high clinical suspicion of injury. Head CT 02/13/23 12:06 IMPRESSION: 1. No acute intracranial hemorrhage or edema. 2. Moderate atrophy and small vessel ischemic disease. 3. Remote LEFT parietal temporal lobe infarct. 4. Mild ventriculomegaly on the basis of atrophy. Ribs X-Ray 02/13/23 12:06 IMPRESSION: No visible rib fracture. Laboratory Results WBC 9.1 10^3/uL (4.0-10.0) 02/13/23 11:50 RBC 3.43 10^6/uL (4.1-5.3) L 02/13/23 11:50 Hgb 11.1 g/dL (11.7-16.6) L 02/13/23 11:50 Hct 33.0 % (42.0-52.0) L 02/13/23 11:50 MCV 96.2 fl (80-94) H 02/13/23 11:50 MCH 32.4 pg (28.0-34.0) 02/13/23 11:50 MCHC 33.6 g/dL (30.0-36.0) 02/13/23 11:50 RDW 12.3 % (12.1-15.1) 02/13/23 11:50 Plt Count 179 10^3/cmm (130-400) 02/13/23 11:50 MPV 9.7 fL (7.4-10.4) 02/13/23 11:50 Neut % (Auto) 80.6 % 02/13/23 11:50 Lymph % (Auto) 5.4 % 02/13/23 11:50 Stone % (Auto) 12.0 % 02/13/23 11:50 Eos % (Auto) 1.1 % 02/13/23 11:50 Baso % (Auto) 0.3 % 02/13/23 11:50 Neut # (Auto) 7.29 10^3/uL (1.8-7.7) 02/13/23 11:50 Lymph # (Auto) 0.5 10^3/uL (0.8-4.8) L 02/13/23 11:50 Stone # (Auto) 1.1 10^3/uL (0.2-0.9) H 02/13/23 11:50 Eos # (Auto) 0.1 10^3/uL (0.0-0.8) 02/13/23 11:50 Baso # (Auto) 0.0 10^3/uL (0.0-0.1) 02/13/23 11:50 Nucleated RBC % (auto) 0 % 02/13/23 11:50 Nucleated RBCs # 0.0 /100WBC 02/13/23 11:50 Sodium 137 mmol/L (136-145) 02/13/23 11:50 Potassium 4.3 mmol/L (3.5-5.1) 02/13/23 11:50 Chloride 97 mmol/L (98-107) L 02/13/23 11:50 Carbon Dioxide 29 mmol/L (22-29) 02/13/23 11:50 Anion Gap 15.3 (5-19) 02/13/23 11:50 BUN 55 mg/dL (8-23) H 02/13/23 11:50 Creatinine 1.7 mg/dL (0.7-1.2) H 02/13/23 11:50 GFR Calculation Not Reportable 02/13/23 11:50 Glucose 87 mg/dL (65-115) 02/13/23 11:50 Calculated Osmolality 298 mOsm/kg (285-295) H 02/13/23 11:50 Calcium 9.0 mg/dL (8.5-10.5) 02/13/23 11:50 Total Bilirubin 0.5 mg/dL (0.15-1.2) 02/13/23 11:50 AST 27 U/L (0-40) 02/13/23 11:50 ALT 17 U/L (0-41) 02/13/23 11:50 Alkaline Phosphatase 59 U/L (40-130) 02/13/23 11:50 Total Protein 6.4 g/dL (6.6-8.7) L 02/13/23 11:50 Albumin 3.7 g/dL (3.5-5.2) 02/13/23 11:50 Globulin 2.7 g/dL (1.3-4.6) 02/13/23 11:50 Urine Color Yellow (Yellow) 02/13/23 12:58 Urine Appearance Clear (CLEAR) 02/13/23 12:58 Urine pH 5 (5-7) 02/13/23 12:58 Ur Specific [place] 1.020 (1.005-1.030) 02/13/23 12:58 Urine Protein Trace (Negative) 02/13/23 12:58 Urine Glucose (UA) Norm (Normal) 02/13/23 12:58 Urine Ketones 1+ (Negative) H 02/13/23 12:58 Urine Blood Neg (Negative) 02/13/23 12:58 Urine Nitrate Negative (Negative) 02/13/23 12:58 Urine Bilirubin Neg (Negative) 02/13/23 12:58 Urine Urobilinogen Norm mg/dL (Negative) 02/13/23 12:58 Ur Leukocyte Esterase Negative (Negative) 02/13/23 12:58 Urine RBC None /hpf (0-2) 02/13/23 12:58 Urine WBC 0-4 /hpf (0-5) H 02/13/23 12:58 Ur Squamous Epith Cells 0-4 /hpf (0-5) H 02/13/23 12:58 Amorphous Sediment Trace /hpf 02/13/23 12:58 Urine Bacteria Trace /hpf (NONE) 02/13/23 12:58 Hyaline Casts 5-10 /lpf H 02/13/23 12:58 Discharge Plan Discharge Patient Disposition: Home Clinical Impression: Compression fracture of lumbar vertebra, Fracture of transverse process of lumbar vertebra, Chronic alcohol abuse Condition: Stable Prescriptions: New hydrocodone-acetaminophen 5-325 mg tablet 1 tab PO Q6H PRN (Reason: pain) Qty: 15 0RF No Action aspirin 81 mg tablet,delayed release (DR/EC) 81 mg PO DAILY furosemide 20 mg tablet 40 mg PO DAILY@0800 thiamine HCl (vitamin B1) 100 mg tablet 100 mg PO DAILY tramadol 50 mg tablet 50 mg PO Q12H PRN (Reason: pain) 14 Days Qty: 28 0RF gabapentin 100 mg capsule 100 mg PO DAILY 30 Days Qty: 30 0RF Rx Instructions: take one capsule once daily propafenone 225 mg tablet 225 mg PO BID pantoprazole 40 mg tablet,delayed release (DR/EC) 40 mg PO DAILY folic acid 1 mg tablet 1 mg PO DAILY labetalol 200 mg tablet 200 mg PO BID potassium chloride 10 mEq Tablet Extended Release 10 meq PO DAILY Discharge Orders: Discharge ED (Routine); Ordered 02/13/23 Ordered By: [place] Referrals: Nba Dinh MD [Primary Care Provider] - Patient Instructions: Opioid Safety, Pain Management Activity Restrictions/Additional Instructions: You are seen today for back pain after a fall. You have acute L4 vertebral compression fracture and subacute transverse process fractures in the same area. You can use hydrocodone for pain. Case management make arrangements for you to have a follow-up with orthopedic spine surgery for consideration of kyphoplasty. 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
[2023-02-13 12:00] LABS: Basophils % 0.3 %; Eosinophils # 0.1 10^3/uL (0.0-0.8); Eosinophils % 1.1 %; Hemoglobin 11.1 g/dL (11.7-16.6); Lymphocytes # 0.5 10^3/uL (0.8-4.8); Lymphocytes % 5.4 %; Mean Corpuscular HGB Conc 33.6 g/dL (30.0-36.0); Mean Corpuscular Hemoglobin 32.4 pg (28.0-34.0); Mean Corpuscular Volume 96.2 fl (80-94); Mean Platelet Volume 9.7 fL (7.4-10.4); Monocytes # 1.1 10^3/uL (0.2-0.9); Neutrophils # 7.29 10^3/uL (1.8-7.7); Neutrophils % 80.6 %; Nucleated Red Blood Cells % 0 %; Platelet Count 179 10^3/cmm (130-400); Red Blood Count 3.43 10^6/uL (4.1-5.3); Red Cell Distribution Width 12.3 % (12.1-15.1); White Blood Count 9.1 10^3/uL (4.0-10.0)
--- NOTE | 2023-02-13 12:06 | XRR_ITS ---
PROCEDURE INFORMATION: Exam: XR Right Ribs Exam date and time: 02/13/2023 12:32 PM Age: 82 years old Clinical indication: Injury or trauma; Fall; Rib area; Blunt trauma (contusions or hematomas); Additional info: Fall/pain TECHNIQUE: Imaging protocol: Radiologic exam of the right ribs. Views: 2 views. COMPARISON: CT chest w con* [id number] 07/14/2021 1:57 PM FINDINGS: Bones/joints: The right shoulder is unremarkable. Visible ribs are intact. No displaced fracture. Lungs: The right lung is clear. Pleural space: No pneumothorax or pleural effusion on the right. Soft tissues: Vascular calcification is present. XR/XR ribs RT 2V* [id number] IMPRESSION: No visible rib fracture.
--- NOTE | 2023-02-13 12:06 | XRR_ITS ---
PROCEDURE INFORMATION: Exam: XR Cervical Spine Exam date and time: 02/13/2023 12:26 PM Age: 82 years old Clinical indication: Injury or trauma; Fall; Sprain or strain, cervical ligaments TECHNIQUE: Imaging protocol: Radiologic exam of the cervical spine. Views: 2 or 3 views. COMPARISON: CT cervical spin wo con* [id number] 08/14/2017 4:18 PM FINDINGS: Bones/joints: The cervical spine is visible through C6 on the lateral view. There is grade 1 anterolisthesis of C4 on C5 and C5 on C6. There is diffuse cervical disc narrowing and uncovertebral spondylosis. There is mild diffuse facet spondylosis. No fracture is visible. Soft tissues: Visible soft tissues are unremarkable. Vasculature: Marked calcific plaque at the carotid bulb bilaterally. XR/XR cervical spine 3V* [id number] IMPRESSION: No visible fracture. Assessment for acute fracture is limited due to incomplete visualization of the cervical spine and degenerative disease. Recommend cervical spine CT if there is high clinical suspicion of injury.
--- NOTE | 2023-02-13 12:06 | CT_ITS ---
WS: [id number] CT HEAD NONCONTRAST HISTORY: fall TECHNIQUE: Contiguous axial imaging performed through the brain in 3.0mm imaging. Bone and soft tissu e windows. Sagittal and coronal reformats reviewed. All CT scans at [facility] use at least o ne of these dose optimization techniques: automated exposure control; mA and/or kV adjustment per pat ient size (includes targeted exams where dose is matched to clinical indication); or iterative recons truction. DLP: 1130.18 COMPARISON: 02/08/2018, 02/07/2018 No acute intracranial hemorrhage, midline shift or mass effect. Moderate atrophy and small vessel ischemic disease. Remote LEFT parietotemporal infarct. Ventricles: Mild ventriculomegaly. On the basis of atrophy. No inferior displacement of the cerebellar tonsils. Paranasal sinuses: As visualized are clear. Mastoid air cells: Well pneumatized. Calvarium and scalp: Skull is intact with no soft tissue edema or swelling. CT/CT head wo con* [id number] IMPRESSION: 1. No acute intracranial hemorrhage or edema. 2. Moderate atrophy and small vessel ischemic disease. 3. Remote LEFT parietal temporal lobe infarct. 4. Mild ventriculomegaly on the basis of atrophy.
[2023-02-13 12:24] LABS: Alanine Aminotransferase 17 U/L (0-41); Albumin Level 3.7 g/dL (3.5-5.2); Alkaline Phosphatase 59 U/L (40-130); Blood Urea Nitrogen 55 mg/dL (8-23); Carbon Dioxide 29 mmol/L (22-29); Chloride 97 mmol/L (98-107); Globulin 2.7 g/dL (1.3-4.6); Glucose 87 mg/dL (65-115); Osmolality Calculated 298 mOsm/kg (285-295); Sodium 137 mmol/L (136-145); Total Bilirubin 0.5 mg/dL (0.15-1.2); Total Protein 6.4 g/dL (6.6-8.7)
[2023-02-13 12:30] LABS: Anion Gap 15.3 (5-19); Aspartate Amino Transferase 27 U/L (0-40); Potassium 4.3 mmol/L (3.5-5.1)
[2023-02-13 14:33] LABS: Bilirubin Urine Neg (Negative); Blood Urine Neg (Negative); Ketones Urine 1+ (Negative); Nitrate Urine Negative (Negative); Protein Urine Trace (Negative); Urine Appearance Clear (CLEAR); Urine Color Yellow (Yellow); pH Urine 5 (5-7)
[2023-02-13 14:34] LABS: Add Urine Microscopic? YES; Amorphous Sediment Urine TRACE /hpf; Bacteria Urine TRACE /hpf; Glucose Urine UA Norm (Normal); Leukocyte Esterase Urine Negative (Negative); Squamous Epithelial Cell Urine 0-4 /hpf (0-5); Urobilinogen Urine Norm (Negative); WBC Urine 0-4 /hpf (0-5)
[2023-02-13 14:35] LABS: Add Urine Culture? No
--- NOTE | 2023-02-14 11:13 | DCPLANNER ---
Addendum entered by Aislinn Nash 02/21/23 07:57: Patient had a follow up appointment scheduled with ortho - patient did attend appointment. Addendum entered by Aislinn Nash 02/15/23 07:57: Patient has a follow up appointment scheduled for , February 16, 2023 at 3:30 with Sravan at ortho. Original Note: comp field case manager had message to schedule a follow up appointment for patient with ortho. comp field case manager sent patients information to the front office staff at ortho. Patients information will be printed and reviewed. Clinic will call patient with appointment information.
== END 2023-02-13 15:50 | disposition home or self-care (01) ==
PROVIDERS: Emergency Provider Family Medicine; PCP Family Medicine
DX: S32.050A Wedge compression fracture of fifth lumbar vertebra, initial encounter for closed fracture (principal); F10.10 Alcohol abuse, uncomplicated; Z79.82 Long term (current) use of aspirin; Z87.891 Personal history of nicotine dependence; J44.9 Chronic obstructive pulmonary disease, unspecified; I11.0 Hypertensive heart disease with heart failure; I50.9 Heart failure, unspecified; E78.5 Hyperlipidemia, unspecified; Z85.46 Personal history of malignant neoplasm of prostate; W19.XXXA Unspecified fall, initial encounter
CPT/HCPCS: 70450; 71045; 71100; 72040; 72131; 80053; 81001; 85025; 93005; 99285

== ENCOUNTER 2023-02-16 16:22 | Outpatient (CLI) | payer MEDICARE, BC, SELFPAY | END 2023-02-16 16:23 | disposition home or self-care (01) | LOC: SPT 16:22 | PROVIDERS: PCP Family Medicine; Visit Provider Physician Assistant | DX: Z46.89 Encounter for fitting and adjustment of other specified devices (principal); S32.000D Wedge compression fracture of unspecified lumbar vertebra, subsequent encounter for fracture with routine healing; X58.XXXD Exposure to other specified factors, subsequent encounter | CPT/HCPCS: 97760; 99203; L0637 ==

== ENCOUNTER 2023-02-20 09:49 | Outpatient (CLI) | payer MEDICARE, BC, SELFPAY ==
--- NOTE | 2023-02-20 09:45 | MR_ITS ---
WS: [id number] MRI LUMBAR SPINE NONCONTRAST HISTORY: fracture COMPARISON: CT lumbar spine 02/13/2023 TECHNIQUE: Sagittal and axial multisequence imaging is submitted. Increase in cervical lordosis and thoracic kyphosis. Component of cervical stenosis is present at C2- 3. Curvature and scoliosis thoracic spine. Straightening lumbar lordosis. Retrolisthesis of L2 by 2 mm. Marrow edema throughout large portion of the L4 vertebral body with loss of height. There is a large defect in the central vertebral body wit h Schmorl's node. Overall approximately 30% loss of height. Very small amount of marrow edema extends into the LEFT pedicle. There is no retropulsion of the vertebral body. No additional fractures. Disc spaces are narrowed and desiccated. Conus terminates normally at L1. L1-L2: Mild disc bulging with mild ligamentum flavum hypertrophy. No stenosis. L2-L3: Mild annular disc bulge with moderate ligamentum flavum hypertrophy. Mild disc encroachment in to the subarticular recesses. Disc contacts the traversing L3 nerve roots. Mild RIGHT foraminal steno sis. L3-L4: Mild annular disc bulging with moderate ligamentum flavum and facet arthritis. Mild disc encro achment upon the subarticular recesses. Slightly greater narrowing of the RIGHT L4 recess. Mild bilat eral foraminal stenosis. L4-L5: Mild annular disc bulging with moderate ligamentum flavum and facet arthritis. Moderate centra l, bilateral subarticular recess and foraminal stenosis. Small central disc protrusion contributing t o this central stenosis. Slightly greater encroachment upon the subarticular recesses and traversing L5 nerve roots. L5-S1: Mild annular disc bulging with ligamentum flavum and facet arthritis. Tiny central disc protru donald. Mild foraminal narrowing. Bilateral renal cysts. MR/MR lumbar spine wo con* [id number] IMPRESSION: 1. Acute L4 compression fracture with vertical and horizontal components and S chmorl's node. Very minimal fracture extension into the LEFT L4 pedicle. No ret ropulsion of the vertebral body. 2. Subarticular recess stenosis at L2-3 with disc contacting the traversing L3 nerve roots and mild RIGHT foraminal stenosis. 3. Disc encroachment upon the subarticular recesses L3-4 with slightly greater narrowing of the RIGHT L4 subarticular recess. Mild bilateral foraminal stenos is. 4. Moderate central, bilateral subarticular recess and foraminal stenosis at L 4-5. Slightly greater encroachment upon the traversing L4 nerve roots. 5. Mild foraminal narrowing at L5-S1.
== END 2023-02-20 09:50 | disposition home or self-care (01) ==
LOC: RAD 09:53
PROVIDERS: PCP Family Medicine; Visit Provider Physician Assistant
DX: S32.000A Wedge compression fracture of unspecified lumbar vertebra, initial encounter for closed fracture (principal); M48.061 Spinal stenosis, lumbar region without neurogenic claudication; X58.XXXA Exposure to other specified factors, initial encounter
CPT/HCPCS: 72148

== ENCOUNTER → 2023-02-21 15:19 | Outpatient (BNVA) | payer MEDICARE, BC, SELFPAY | PROVIDERS: PCP Family Medicine; Visit Provider Physician Assistant | DX: S32.040A Wedge compression fracture of fourth lumbar vertebra, initial encounter for closed fracture (principal); X58.XXXA Exposure to other specified factors, initial encounter | CPT/HCPCS: 99213 ==

== ENCOUNTER → 2023-02-22 14:51 | Outpatient (BNVA) | payer MEDICARE, BC, SELFPAY | PROVIDERS: PCP Family Medicine; Visit Provider Podiatrist Foot & Ankle Surgery | DX: M20.11 Hallux valgus (acquired), right foot (principal); M20.41 Other hammer toe(s) (acquired), right foot; M20.42 Other hammer toe(s) (acquired), left foot; I73.9 Peripheral vascular disease, unspecified; L60.3 Nail dystrophy; L84 Corns and callosities; L97.522 Non-pressure chronic ulcer of other part of left foot with fat layer exposed | CPT/HCPCS: 99213 ==

== ENCOUNTER 2023-02-27 05:50 | Day surgery (SDC) | payer MEDICARE, BC, SELFPAY ==
[2023-02-24 14:05] VITALS: BMI 18.2
--- NOTE | 2023-02-24 14:55 | ANES.PREANE2 ---
Pre-Anesthetic Assessment Height/Weight: Height 1.78 m Weight 57.606 kg Operation Date: 02/27/23 07:00 Proposed Procedures p Kyphoplasty: L4 39259 S32.040A(Not Applicable) - Sterling Casarez DO Familial anesthetic complications: none Was Beta Yovanny taken within 24 hours: N/A Was Clonidine taken within 24 hours: N/A Social No alcohol and No tobacco Exam alert, oriented x 3 and clear to auscultation bilaterally irregular Airway Submandibular: within normal limits Cervical ROM: within normal limits Mallampati: Class II Dentition: chipped Pulmonary Chronic Obstructive Pulmonary Disease CV/HEM Atrial Fibrillation, Anemia, Hypertension and Peripheral Vascular Disease TAVR, preserved LV fxn Chronic Renal Insufficiency GI Gastroesophageal Reflux Disease Musc/skel Lower Back Pain and Osteoarthritis/DJD Anesthetic Plan ASA status: 3 Anesthesia: General Medications/Allergies Home Medications Medication Instructions Recorded Confirmed Last Taken Type folic acid 1 mg tablet 1 mg PO DAILY 12/04/19 02/24/23 02/24/23 History pantoprazole 40 mg tablet,delayed 40 mg PO DAILY 12/04/19 02/24/23 02/24/23 History release propafenone 225 mg tablet 225 mg PO BID 12/04/19 02/24/23 02/24/23 History aspirin 81 mg tablet,delayed 81 mg PO DAILY 04/15/20 02/24/23 02/20/23 History release furosemide 20 mg tablet 40 mg PO DAILY@0800 08/30/21 02/24/23 02/24/23 History labetalol 200 mg tablet 200 mg PO BID 08/30/21 02/24/23 02/24/23 History thiamine HCl (vitamin B1) 100 mg 100 mg PO DAILY 08/30/21 02/24/23 02/24/23 History tablet hydrocodone 5 mg-acetaminophen 325 1 tab PO Q6H PRN pain #15 tabs 02/13/23 02/24/23 02/24/23 Rx mg tablet potassium chloride 10 mEq 10 meq PO DAILY 02/13/23 02/24/23 02/24/23 History tablet,extended release TLSO #1 ea 02/16/23 02/22/23 Unknown Rx gabapentin 100 mg capsule See Rx Instructions .Route 02/16/23 02/24/23 02/24/23 Rx .COMPLEX #30 caps Allergies Allergy/AdvReac Type Severity Reaction Status Date / Time ramipril Allergy Neha Verified 02/24/23 14:00 Lip/Tongue/Throat PFSH Anesthesia Medical History Atrial fibrillation COPD (chronic obstructive pulmonary disease) Diastolic dysfunction Heart failure with preserved ejection fraction HTN (hypertension) Hx of subarachnoid hemorrhage Hyperlipidemia Hypoxemia requiring supplemental oxygen Patient requires oxygen with ambulation only. Mild aortic regurgitation Mild pulmonary hypertension Perforated duodenal ulcer Peripheral neuropathy Prostate cancer PUD (peptic ulcer disease) Severe aortic stenosis Skin cancer Spontaneous pneumothorax Surgical History H/O exploratory laparotomy History of colon surgery History of lung surgery Hx of prostatectomy Hx of tonsillectomy Family History Other Diabetes Hypertension Denies family history of CAD (coronary artery disease) Cancer Social History Smoking and tobacco status: former smoker Quit status (tobacco): has quit using tobacco Year quit tobacco: Former quit date comment: 1ppd x 15 years Alcohol intake: current Alcohol intake frequency: 0-2 Drinks per Day Data Anesthesia Cardiac Studies: No Data to Display
[2023-02-24 15:26] LABS: Calcium 8.8 mg/dL (8.5-10.5); Phosphorus 3.6 mg/dL (2.5-4.5)
[2023-02-24 15:30] LABS: Parathyroid Hormone 62.5 pg/mL (15-65)
[2023-02-24 15:40] LABS: 25 Hydroxy Vitamin D 45 ng/mL (30-100)
[2023-02-27] VITALS (10 sets, daily range): BP systolic 135–158; BP diastolic 61–79; PULSE 60–72; RESP 14–18; TEMP 36.1–36.6; O2SAT 96–99
[2023-02-27] MEDS: sodium chloride 0.9% 1,000 ML 30 ML IV (06:18)
--- NOTE | 2023-02-27 06:32 | W.PM.OPSUD ---
Surgery/Procedure H&P Update DATE OF PROCEDURE: February 27, 2023 DATE H&P PERFORMED: 02/21/23 PREOP DIAGNOSIS: L4 compression fracture PLANNED PROCEDURE: Operation Date: 02/27/23 07:00 Proposed Procedures p Kyphoplasty: L4 29176 S32.040A(Not Applicable) - Sterling Casarez DO
[2023-02-27] MEDS: ceFAZolin 2,000 MG in sodium chloride 0.9% (plus) 50 ML 100 MG IV (07:04)
[2023-02-27] MEDS: lidocaine-epi 1% 20 mL INJ 10 ML INJECTION (07:30)
--- NOTE | 2023-02-27 07:47 | XR_ITS ---
WS: [id number] Lumbar spine, C-arm fluoroscopy for kyphoplasty, 02/27/2023 Clinical Data: OR PICS Comparison: CT lumbar spine, 02/13/2023 Findings: Dr. Casarez inserted kyphoplasty cement into the L4 vertebral body. XR/XR lumbar spine 2-3V* [id number] Impression: L4 kyphoplasty.
--- NOTE | 2023-02-27 07:51 | PC.NURSE ---
Pt arrived to PACU, awake, denies any pain or nausea at this time. Dressing C/D/I, pt able to move all extremities.
--- NOTE | 2023-02-27 08:01 | PM.OP ---
Operative Report Date of procedure: February 27, 2023 Pre-op diagnosis: Preop Diagnosis L4 wedge osteoporotic traumatic compression fracture Post-op diagnosis: same Procedure done: 1. L4 Kyphoplasty Surgeon: Sterling Casarez Estimated blood loss (mL): 5 Procedure: 1. kyphoplasty Patient brought the op suite after undergoing anesthesia placed in the prone position. All the pressure well-padded patient's prepped and draped normal sterile fashion. Skin incision made over the L4 level. The vertebrae and pedicles were identified using biplanar fluoroscopy. The awl was inserted. And then the biopsy with tissue was taken and sent for pathology. And then the drill was inserted. Followed by the balloon. Balloon was inflated and deflated. And then cement was injected into the vertebral body good fill across anteriorly as well as right and left sides. The tube was removed AP lateral fluoroscopy ensured that the cement was in good position. Wounds irrigated and closed with nylon suture. Sterile dressings applied patient transferred to PACU in stable condition.
--- NOTE | 2023-02-27 08:15 | P.ANESUD_ITS ---
Pre-Anesthetic Update Pre-Anesthetic Assessment: Date of Surgery/Procedure: 02/27/23 Preop Dionne gnosis: L4 compression fracture Proposed Procedure: Operation Date: 02/27/23 07:00 Proposed Procedures p Kyphoplasty: L4 57790 S32.040A(Not Applicable) - Sterling Casarez, DO Any changes to Pre-Anesthetic Assessment?: No Last Intake: Intake Last Liquid Date 02/26/23 Last Liquid Time 22:00 Last Solid Date 02/26/23 Last Solid Time 22:00 Vitals: Temperature 97.0 F L 02/27/23 07:51 Temperature Source Temporal Artery S can 02/27/23 07:51 Pulse Rate 61 02/27/23 08:11 Pulse Rhythm Regular 02/27/23 06:11 Pulse Strength 3+ Normal 02/27/23 06:11 Respiratory Rate 16 02/27/23 08:11 Blood Pressure 145/74 02/27/23 08:11 Blood Pressure Kimmie n 97 02/27/23 08:11 Pulse Oximetry 97 02/27/23 08:11 Oxygen Delivery Me thod Room Air 02/27/23 08:11 Exam: Pre-Anes Outpt Exam: alert, oriented x 3, clear to auscultation bilaterally and regular rate & rhythm Cardiac Studies: No Data to Display
--- NOTE | 2023-02-27 14:54 | ANE.PACU2 ---
Inpatient post-anesthesia follow up: Airway intact: Yes Vital signs: Temperature 97.3 F Pulse Rate 64 Respiratory Rate 18 Blood Pressure 155/61 Pulse Oximetry 99 Oxygen Delivery Me thod Room Air Oxygen Flow Rate Fraction of Inspir ed Oxygen Hydration adequate: Yes Nausea and vomiting: No Pain level: 2 Mental status: Baseline
== END 2023-02-27 09:20 | disposition home or self-care (01) ==
PROVIDERS: PCP Family Medicine; Visit Provider Orthopaedic Surgery
PROC: (CPT 22514; principal; 2023-02-27 07:00)
DX: S32.040A Wedge compression fracture of fourth lumbar vertebra, initial encounter for closed fracture (principal); X58.XXXA Exposure to other specified factors, initial encounter; J44.9 Chronic obstructive pulmonary disease, unspecified; I48.91 Unspecified atrial fibrillation; I73.9 Peripheral vascular disease, unspecified; K21.9 Gastro-esophageal reflux disease without esophagitis; D63.1 Anemia in chronic kidney disease; M19.90 Unspecified osteoarthritis, unspecified site; I13.0 Hypertensive heart and chronic kidney disease with heart failure and stage 1 through stage 4 chronic kidney disease, or unspecified chronic kidney disease; I50.30 Unspecified diastolic (congestive) heart failure; N18.9 Chronic kidney disease, unspecified; Z79.82 Long term (current) use of aspirin; I35.1 Nonrheumatic aortic (valve) insufficiency; K27.9 Peptic ulcer, site unspecified, unspecified as acute or chronic, without hemorrhage or perforation; Z87.891 Personal history of nicotine dependence
CPT/HCPCS: 22514; 72100; 76000; 82306; 82310; 83970; 84100; 88307; 88311; J0131; J0690; J1100; J2370; J2405; J2704; J3010; J3490; J7030; P9045

== ENCOUNTER → 2023-03-14 14:16 | Outpatient (BNVA) | payer MEDICARE, BC, SELFPAY | PROVIDERS: PCP Family Medicine; Visit Provider Physician Assistant | DX: S32.040A Wedge compression fracture of fourth lumbar vertebra, initial encounter for closed fracture (principal); X58.XXXA Exposure to other specified factors, initial encounter; I73.9 Peripheral vascular disease, unspecified; M20.11 Hallux valgus (acquired), right foot; M20.41 Other hammer toe(s) (acquired), right foot; M20.42 Other hammer toe(s) (acquired), left foot; L60.3 Nail dystrophy | CPT/HCPCS: 99024; 99213 ==

== ENCOUNTER 2023-03-30 13:26 | Outpatient (CLI) | payer MEDICARE, BC, SELFPAY ==
--- NOTE | 2023-03-30 13:43 | XR_ITS ---
WS: [id number] DEXA (DUAL ENERGY X-RAY ABSORPTIOMETRY) Bone mineral density was performed using a [employer] machine. HISTORY: COMPRESSION FX OF LSPINE COMPARISON: None available. Lumbar spine BMD (L1-L4): 1.696 g/cm2 T score: 4.0 Z score: 5.3 Total hip BMD: Left: 0.950 g/cm2. T score: -1.0 Z score: 0.5 Right: 0.967 g/cm2. T score: -0.9 Z score: 0.6 10 year probability of a major osteoporotic fracture is 6.5%. XR/XR DEXA axial skeleton* [id number] IMPRESSION: NORMAL BONE MINERAL DENSITY based upon the WHO classification for females.
== END 2023-03-30 13:27 | disposition home or self-care (01) ==
LOC: RAD 13:30
PROVIDERS: PCP Family Medicine; Visit Provider Family Medicine
DX: M48.56XA Collapsed vertebra, not elsewhere classified, lumbar region, initial encounter for fracture (principal)
CPT/HCPCS: 77080

== ENCOUNTER → 2023-04-13 10:07 | Outpatient (BNVA) | payer MEDICARE, BC, SELFPAY | PROVIDERS: PCP Family Medicine; Visit Provider Physician Assistant | DX: Z98.1 Arthrodesis status (principal) | CPT/HCPCS: 99024 ==

== ENCOUNTER → 2023-04-19 14:56 | Outpatient (BNVA) | payer MEDICARE, BC, SELFPAY | PROVIDERS: PCP Family Medicine; Visit Provider Podiatrist Foot & Ankle Surgery | DX: Z51.89 Encounter for other specified aftercare (principal); M20.11 Hallux valgus (acquired), right foot; M20.41 Other hammer toe(s) (acquired), right foot; M20.42 Other hammer toe(s) (acquired), left foot; I73.9 Peripheral vascular disease, unspecified; L60.3 Nail dystrophy | CPT/HCPCS: 99213 ==

== ENCOUNTER → 2023-05-24 14:27 | Outpatient (BNVA) | payer MEDICARE, BC, SELFPAY | PROVIDERS: PCP Family Medicine; Visit Provider Podiatrist Foot & Ankle Surgery | DX: I73.9 Peripheral vascular disease, unspecified (principal); L97.521 Non-pressure chronic ulcer of other part of left foot limited to breakdown of skin; L60.3 Nail dystrophy; M20.42 Other hammer toe(s) (acquired), left foot; M20.41 Other hammer toe(s) (acquired), right foot; M20.11 Hallux valgus (acquired), right foot | CPT/HCPCS: 99213 ==

== ENCOUNTER → 2023-06-28 14:56 | Outpatient (BNVA) | payer MEDICARE, BC, SELFPAY | PROVIDERS: PCP Family Medicine; Visit Provider Podiatrist Foot & Ankle Surgery | DX: M20.11 Hallux valgus (acquired), right foot (principal); M20.41 Other hammer toe(s) (acquired), right foot; M20.42 Other hammer toe(s) (acquired), left foot; I73.9 Peripheral vascular disease, unspecified; L97.521 Non-pressure chronic ulcer of other part of left foot limited to breakdown of skin | CPT/HCPCS: 99213 ==

== ENCOUNTER → 2023-07-19 14:55 | Outpatient (BNVA) | payer MEDICARE, BC, SELFPAY | PROVIDERS: PCP Family Medicine; Visit Provider Podiatrist Foot & Ankle Surgery | DX: M20.11 Hallux valgus (acquired), right foot (principal); M20.41 Other hammer toe(s) (acquired), right foot; M20.42 Other hammer toe(s) (acquired), left foot; I73.9 Peripheral vascular disease, unspecified | CPT/HCPCS: 99213 ==

== ENCOUNTER → 2023-09-12 14:49 | Outpatient (BNVA) | payer MEDICARE, BC, SELFPAY | PROVIDERS: PCP Family Medicine; Visit Provider Podiatrist Foot & Ankle Surgery | DX: M20.11 Hallux valgus (acquired), right foot (principal); M20.41 Other hammer toe(s) (acquired), right foot; M20.42 Other hammer toe(s) (acquired), left foot; I73.9 Peripheral vascular disease, unspecified; L60.3 Nail dystrophy; L84 Corns and callosities | CPT/HCPCS: 11056; 11721 ==

== ENCOUNTER → 2024-09-23 08:00 | Outpatient (BNVA) | payer MEDICARE, BC, SELFPAY | PROVIDERS: PCP Family Medicine; Visit Provider Podiatrist Foot & Ankle Surgery | DX: M20.11 Hallux valgus (acquired), right foot (principal); M20.41 Other hammer toe(s) (acquired), right foot; M20.42 Other hammer toe(s) (acquired), left foot; I73.9 Peripheral vascular disease, unspecified | CPT/HCPCS: 99213 ==

== ENCOUNTER → 2025-03-24 13:46 | Outpatient (BNVA) | payer MEDICARE, BC, SELFPAY | PROVIDERS: PCP Family Medicine; Visit Provider Podiatrist Foot & Ankle Surgery | DX: I73.9 Peripheral vascular disease, unspecified (principal); L60.3 Nail dystrophy; L84 Corns and callosities; M20.11 Hallux valgus (acquired), right foot; M20.41 Other hammer toe(s) (acquired), right foot; M20.42 Other hammer toe(s) (acquired), left foot | CPT/HCPCS: 11056; 11721 ==

== ENCOUNTER → 2025-06-16 14:13 | Outpatient (BNVA) | payer MEDICARE, BC, SELFPAY | PROVIDERS: PCP Family Medicine; Visit Provider Podiatrist Foot & Ankle Surgery | DX: I73.9 Peripheral vascular disease, unspecified (principal); L60.3 Nail dystrophy; L84 Corns and callosities; L60.8 Other nail disorders; M20.11 Hallux valgus (acquired), right foot; M20.41 Other hammer toe(s) (acquired), right foot; M20.42 Other hammer toe(s) (acquired), left foot | CPT/HCPCS: 11056; 11721 ==

== ENCOUNTER → 2025-09-24 10:40 | Outpatient (BNVA) | payer MEDICARE, BC, SELFPAY | PROVIDERS: PCP Family Medicine; Visit Provider Podiatrist Foot & Ankle Surgery | DX: I73.9 Peripheral vascular disease, unspecified (principal); L60.3 Nail dystrophy; L84 Corns and callosities; L60.8 Other nail disorders; M20.11 Hallux valgus (acquired), right foot; M20.41 Other hammer toe(s) (acquired), right foot; M20.42 Other hammer toe(s) (acquired), left foot; L97.513 Non-pressure chronic ulcer of other part of right foot with necrosis of muscle | CPT/HCPCS: 11056; 11721 ==

== ENCOUNTER → 2025-10-22 15:28 | Outpatient (BNVA) | payer MEDICARE, BC, SELFPAY | PROVIDERS: PCP Family Medicine; Visit Provider Podiatrist Foot & Ankle Surgery | DX: L97.513 Non-pressure chronic ulcer of other part of right foot with necrosis of muscle (principal) | CPT/HCPCS: 87070; 87075; 87205 ==

== ENCOUNTER 2025-10-22 15:30 | Outpatient (CLI) | payer MEDICARE, BC, SELFPAY | END 2025-10-22 15:31 | disposition home or self-care (01) | LOC: SPT 15:31 | PROVIDERS: PCP Family Medicine; Visit Provider Podiatrist Foot & Ankle Surgery | DX: Z46.89 Encounter for fitting and adjustment of other specified devices (principal); L97.513 Non-pressure chronic ulcer of other part of right foot with necrosis of muscle | CPT/HCPCS: L4361 ==